=== PATIENT | male | born 1975 | race Two or more races ===

== ENCOUNTER 2024-08-12 14:13 | Outpatient (AMB) | payer MEDICAID, SELFPAY ==
[2024-08-12 14:26] VITALS: BP 139/91; PULSE 83; RESP 19; TEMP 36.8; O2SAT 95; BMI 34.2
--- NOTE | 2024-08-12 14:26 | ORTHONT_ITS ---
Vital signs 08/12/24 14:26 Height 1.68 m Height Method Stated Weight 96.218 kg Weight Measurement Method Standing Scale BMI 34.2 BP 139/91 H Blood Pressure Source Automatic Cuff Blood Pressure Location Right Upper Arm Position Sitting Respiration 19 Pulse 83 Pulse Source Monitor Temp 98.2 F Temp Source Temporal Artery Scan Pulse Oximetry (%) 95 Oxygen Delivery Method Room Air Med/Allergies Allergies & Medications Allergies NKA* Allergy (Uncoded 08/12/24 14:26) Medication Reconciliation tamsulosin 0.4 mg capsule (Flomax) 0.4 mg PO QDAY #7 caps 09/03/23 [Rx Confirmed 08/12/24] hydrocortisone 1 % topical cream (Anti-Itch (hydrocortisone)) 1 applic topical QDAY PRN itching #28.35 grams 12/10/23 [Rx Confirmed 08/12/24] hydrocortisone-pramoxine 1 %-1 % rectal cream 1 applic [place] TID-QID PRN itching #30 grams 12/14/23 [Rx Confirmed 08/12/24] celecoxib 200 mg capsule 200 mg PO QDAY 08/12/24 [History Confirmed 08/12/24] diclofenac sodium 1 % topical gel 2 g topical QID 08/12/24 [History Confirmed 08/12/24] Subjective Visit Visit for: new patient and knee (LEFT) Immunization / Flu Flu Vaccine in the Last 12 Months: No Flu Vaccine Exclusion Criteria: Refused by Patient History of Present Illness Chief complaint: LEFT KNEE PAIN Date of injury / onset of symptoms: 3 MONTHS Joe is a pleasant 49-year-old male with left knee pain and left knee arthritis. The pains on the medial aspect of his knee. He has had Toradol injections but nothing in his knee. He is also tried Celebrex. The pain is affecting his quality life. 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 Exam Exam Patient is in no acute distress and is cooperative with the examination today. Breathing is nonlabored. Patient has a normal mood and affect. Bilateral extremities were evaluated and demonstrates sensation intact to light touch. Palpable pedal pulses are present. No significant edema is present. Bilateral hips were examined. The patient has no pain with log roll of the hips. Internal rotation to 30 degrees and external rotation to 30 degrees is painless. Negative FADIR. Right knee was examined today. The right knee is in reasonable alignment. Range of motion from 0-120 degrees. Knee is stable to varus and valgus as well as AP translation with <5mm. Patient has a negative McMurrays. There is no pain with patellofemoral compression and no crepitus noted. The knee is nontender to palpation. Left knee was examined today. The left knee is in [varus] alignment. Range of motion from [0-115] degrees. Knee is stable to varus and valgus as well as AP translation with <5mm. Patient has a [negative] McMurrays. There is [no] pain with patellofemoral compression and [no] crepitus noted. The knee is [tender] to palpation [medially]. Assessment and Plan Problem List (1) Arthritis of left knee: Status: Acute Plan: Patient is a pleasant 49-year-old male with left knee pain and left knee arthritis. The pain is medially. We will get x-rays to see what it looks like. We will likely do an injection of cortisone at the next visit. Will need authorization and weightbearing x-rays. Office Procedures GNS Level of Care Nursing/Assessment Patient Status: Initial/New Patient Nursing Assessment/Reassesment: Medication Reconciliation, Update PMH in EMR and Vital Signs Coordination of Care: Complex Care and Chronic Disease 1-5, Education Complex Pt/Fam, Consent,records obtained, informed consent, 1 Ins Authorization, Lab and Imaging orders, Results/Orders obtained and Staff clarify orders Special Needs: Language special needs New Patient Charge New Patient Point Assignment: [id number] New Patient Point Charge: PHOTOGRAPHIC PROCESSOR Level 4 ([id number]) Past Medical History Past Medical History Have you ever been diagnosed with any of the following: Neurological Problems Seizures: No Cardiology Problems Congestive Heart Failure: No Respiratory Problems Chronic Obstructive Pulmonary Disease (COPD): No Asthma: No Smoking: No Smoking Exposure: No Stomache/Intestinal Problems Hepatitis: No Colitis: Yes Diverticulosis: Yes Hemorrhoids: Yes Obesity: Yes Genital/Urinary Problems Renal Disease: No Endocrine Problems Diabetes Mellitus Type 1: No Diabetes Mellitus Type 2: No Blood Problems Sickle Cell Disease: No Psychologic Problems 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
== END 2024-08-12 14:39 | disposition home or self-care (01) ==
LOC: HODSRG 14:13
PROVIDERS: PCP Registered Nurse Community Health; Referring Provider Registered Nurse Community Health; Supervising Provider Orthopaedic Surgery Adult Reconstructive Orthopaedic Surgery; Visit Provider Orthopaedic Surgery Adult Reconstructive Orthopaedic Surgery
DX: M17.12 Unilateral primary osteoarthritis, left knee (principal); M25.562 Pain in left knee
CPT/HCPCS: 99204; G0463

== ENCOUNTER 2024-08-29 15:02 | Outpatient (AMB) | payer MEDICAID, SELFPAY ==
--- NOTE | 2024-08-29 14:58 | ORTHONT_ITS ---
Med/Allergies Allergies & Medications Allergies NKA* Allergy (Uncoded 08/29/24 14:59) Medication Reconciliation tamsulosin 0.4 mg capsule (Flomax) 0.4 mg PO QDAY #7 caps 09/03/23 [Rx Confirmed 08/29/24] hydrocortisone 1 % topical cream (Anti-Itch (hydrocortisone)) 1 applic topical QDAY PRN itching #28.35 grams 12/10/23 [Rx Confirmed 08/29/24] hydrocortisone-pramoxine 1 %-1 % rectal cream 1 applic [place] TID-QID PRN itching #30 grams 12/14/23 [Rx Confirmed 08/29/24] celecoxib 200 mg capsule 200 mg PO QDAY 08/12/24 [History Confirmed 08/29/24] diclofenac sodium 1 % topical gel 2 g topical QID 08/12/24 [History Confirmed 08/29/24] Subjective Visit Visit for: follow up visit Immunization / Flu Flu Vaccine in the Last 12 Months: No Flu Vaccine Exclusion Criteria: No Exclusion Criteria History of Present Illness Chief complaint: 2 WEEK UP XRAY RESULTS/INJECTION PHONE Date of injury / onset of symptoms: 3 MONTHS Joe is a pleasant 49-year-old male with left knee pain and left knee arthritis. The pains on the medial aspect of his knee. He has had Toradol injections but nothing in his knee. He is also tried Celebrex. The pain is affecting his quality life. 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 Assessment and Plan Problem List (1) Arthritis of left knee: Status: Acute Plan: Patient is a pleasant 49-year-old male with left knee pain and left knee arthritis. The pain is medially. He has moderate arthritis in the medial compartment. We discussed nonoperative operative management. We will do a co rtisone injection at the next visit. We will get this set up for him. Office Procedures GNS Level of Care Nursing/Assessment Patient Status: Established Patient Nursing Assessment/Reassesment: Medication Reconciliation, Update PMH in EMR and Vital Signs Coordination of Care: Complex Care and Chronic Disease 1-5, Education Complex Pt/Fam, Consent,records obtained, informed consent, Results/Orders obtained and Staff clarify orders Special Needs: Language special needs Established Patient Charge Established Patient Point Assignment: 95 Telehealth Telemed Phone/Video with patient at home & Dr,PA,SENIOR NETWORK ENGINEER: Yes
== END 2024-08-29 15:19 | disposition home or self-care (01) ==
LOC: HODSRG 15:02
PROVIDERS: PCP Registered Nurse Community Health; Referring Provider Registered Nurse Community Health; Supervising Provider Orthopaedic Surgery Adult Reconstructive Orthopaedic Surgery; Visit Provider Orthopaedic Surgery Adult Reconstructive Orthopaedic Surgery
DX: M17.12 Unilateral primary osteoarthritis, left knee (principal); M25.562 Pain in left knee
CPT/HCPCS: 99212; G0463

== ENCOUNTER 2024-09-09 08:25 | Outpatient (AMB) | payer MEDICAID, SELFPAY ==
--- NOTE | 2024-09-09 08:35 | PD.ORTHCLVIS ---
Vital signs 09/09/24 08:36 Height 1.68 m Height Method Stated Weight 94.886 kg Weight Measurement Method Standing Scale BMI 33.6 BP 137/85 H Blood Pressure Source Automatic Cuff Blood Pressure Location Right Upper Arm Position Sitting Respiration 19 Pulse 78 Pulse Source Monitor Temp 97.8 F Temp Source Temporal Artery Scan Pulse Oximetry (%) 96 Oxygen Delivery Method Room Air Med/Allergies Allergies & Medications Allergies NKA* Allergy (Uncoded 09/09/24 08:37) Medication Reconciliation tamsulosin 0.4 mg capsule (Flomax) 0.4 mg PO QDAY #7 caps 09/03/23 [Rx Confirmed 09/09/24] hydrocortisone 1 % topical cream (Anti-Itch (hydrocortisone)) 1 applic topical QDAY PRN itching #28.35 grams 12/10/23 [Rx Confirmed 09/09/24] hydrocortisone-pramoxine 1 %-1 % rectal cream 1 applic [place] TID-QID PRN itching #30 grams 12/14/23 [Rx Confirmed 09/09/24] celecoxib 200 mg capsule 200 mg PO QDAY 08/12/24 [History Confirmed 09/09/24] diclofenac sodium 1 % topical gel 2 g topical QID 08/12/24 [History Confirmed 09/09/24] Subjective Visit Visit for: follow up visit, knee and injections Immunization / Flu Flu Vaccine in the Last 12 Months: No Flu Vaccine Exclusion Criteria: Refused by Patient History of Present Illness Chief complaint: LEFT KNEE INJECTION REQ Date of injury / onset of symptoms: 3 MONTHS Joe is a pleasant 49-year-old male with left knee pain and left knee arthritis. The pains on the medial aspect of his knee. He has had Toradol injections but nothing in his knee. He is also tried Celebrex. The pain is affecting his quality life. 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 Exam Exam Patient is in no acute distress and is cooperative with the examination today. Breathing is nonlabored. Patient has a normal mood and affect. Bilateral extremities were evaluated and demonstrates sensation intact to light touch. Palpable pedal pulses are present. No significant edema is present. Bilateral hips were examined. The patient has no pain with log roll of the hips. Internal rotation to 30 degrees and external rotation to 30 degrees is painless. Negative FADIR. Right knee was examined today. The right knee is in reasonable alignment. Range of motion from 0-120 degrees. Knee is stable to varus and valgus as well as AP translation with <5mm. Patient has a negative McMurrays. There is no pain with patellofemoral compression and no crepitus noted. The knee is nontender to palpation. Left knee was examined today. The left knee is in [varus] alignment. Range of motion from [0-115] degrees. Knee is stable to varus and valgus as well as AP translation with <5mm. Patient has a [negative] McMurrays. There is [no] pain with patellofemoral compression and [no] crepitus noted. The knee is [tender] to palpation [medially]. Assessment and Plan Problem List (1) Arthritis of left knee: Status: Acute Plan: Patient is a pleasant 49-year-old male with left knee pain and left knee arthritis. The pain is medially. He has moderate arthritis in the medial compartment. We will start with a cortisone injection Recommend knee cortisone injection as patient would like to proceed with conservative treatment at this time. The risks and benefits of the procedure were reviewed with the patient and patient gave verbal consent to continue with the procedure. Procedure: performed by Dr. Wilson Using sterile technique the left knee was thoroughly prepped with alcohol, and approximately 1 cc of Kenalog 40 mg/mL and 4 cc of 1% lidocaine was injected without resistance into the medial tibial femoral joint space. The patient tolerated the procedure. Office Procedures GNS Level of Care Nursing/Assessment Patient Status: Established Patient Nursing Assessment/Reassesment: Medication Reconciliation, Update PMH in EMR and Vital Signs Coordination of Care: Complex Care and Chronic Disease 1-5, Education Complex Pt/Fam, Consent,records obtained, informed consent, 1 Ins Authorization, Results/Orders obtained and Staff clarify orders Special Needs: Language special needs Established Patient Charge Established Patient Point Assignment: 110 Established Patient Point Charge: EP Level 3 (80-115) Surgical Proc/IM SQ injection Major Surgical Procedure: Yes (KNEE INJECTION) Medication Given Medication Given Medication Given: Yes Documented Dose Given: 4 Route: Infiitration Medication Given Medication Given Medication Given: Yes Documented Dose Given: 1 Route: Infiitration Office Meds Xylocaine 10 mg/mL (1 %) injection solution Performing Provider: Miguel Wilson MD Performing Location: [facility] Administered by: Miguel Wilson MD on 09/09/24 09:04 Dose Route Admin Location Dispensed Lot Number Expiration Date [facility] Esl Instructional Assistant 20 mL Infiltration 20 mL [id number] 06/06/27 54683-177-37 [facility] triamcinolone acetonide 40 mg/mL suspension for injection Performing Provider: Miguel Wilson MD Performing Location: [facility] Administered by: Miguel Wilson MD on 09/09/24 09:04 Dose Route Admin Location Dispensed Lot Number Expiration Date [place] Esl Instructional Assistant 40 mg Infiltration 1 mL [id number] 03/06/26 0095-2097-60 [employer] Past Medical History Past Medical History Have you ever been diagnosed with any of the following: Neurological Problems Seizures: No Cardiology Problems Congestive Heart Failure: No Respiratory Problems Chronic Obstructive Pulmonary Disease (COPD): No Asthma: No Smoking: No Smoking Exposure: No Stomache/Intestinal Problems Hepatitis: No Colitis: Yes Diverticulosis: Yes Hemorrhoids: Yes Obesity: Yes Genital/Urinary Problems Renal Disease: No Endocrine Problems Diabetes Mellitus Type 1: No Diabetes Mellitus Type 2: No Blood Problems Sickle Cell Disease: No Psychologic Problems 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
[2024-09-09 08:36] VITALS: BP 137/85; PULSE 78; RESP 19; TEMP 36.6; O2SAT 96; BMI 33.6
== END 2024-09-09 09:24 | disposition home or self-care (01) ==
LOC: HODSRG 08:25
PROVIDERS: Supervising Provider Orthopaedic Surgery Adult Reconstructive Orthopaedic Surgery; Visit Provider Orthopaedic Surgery Adult Reconstructive Orthopaedic Surgery
DX: M17.12 Unilateral primary osteoarthritis, left knee (principal); M25.562 Pain in left knee
CPT/HCPCS: 20610; 99213; J3301; J3490; G0463

== ENCOUNTER 2024-12-09 08:02 | Outpatient (AMB) | payer MEDICAID, SELFPAY ==
[2024-12-09 08:14] VITALS: BP 120/84; PULSE 72; RESP 18; TEMP 36.5; O2SAT 94; BMI 33.7
--- NOTE | 2024-12-09 08:14 | PD.ORTHCLVIS ---
Vital signs 12/09/24 08:14 Height 1.68 m Height Method Stated Weight 95.283 kg Weight Measurement Method Standing Scale BMI 33.7 BP 120/84 Blood Pressure Source Automatic Cuff Blood Pressure Location Left Upper Arm Position Sitting Respiration 18 Pulse 72 Pulse Source Monitor Temp 97.7 F Temp Source Temporal Artery Scan Pulse Oximetry (%) 94 L Oxygen Delivery Method Room Air Med/Allergies Allergies & Medications Allergies NKA* Allergy (Uncoded 12/09/24 08:14) Medication Reconciliation tamsulosin 0.4 mg capsule (Flomax) 0.4 mg PO QDAY #7 caps 09/03/23 [Rx Confirmed 12/09/24] hydrocortisone 1 % topical cream (Anti-Itch (hydrocortisone)) 1 applic topical QDAY PRN itching #28.35 grams 12/10/23 [Rx Confirmed 12/09/24] hydrocortisone-pramoxine 1 %-1 % rectal cream 1 applic [place] TID-QID PRN itching #30 grams 12/14/23 [Rx Confirmed 12/09/24] celecoxib 200 mg capsule 200 mg PO QDAY 08/12/24 [History Confirmed 12/09/24] diclofenac sodium 1 % topical gel 2 g topical QID 08/12/24 [History Confirmed 12/09/24] Exam Exam Patient is in no acute distress and is cooperative with the examination today. Breathing is nonlabored. Patient has a normal mood and affect. Bilateral extremities were evaluated and demonstrates sensation intact to light touch. Palpable pedal pulses are present. No significant edema is present. Bilateral hips were examined. The patient has no pain with log roll of the hips. Internal rotation to 30 degrees and external rotation to 30 degrees is painless. Negative FADIR. Right knee was examined today. The right knee is in reasonable alignment. Range of motion from 0-120 degrees. Knee is stable to varus and valgus as well as AP translation with <5mm. Patient has a negative McMurrays. There is no pain with patellofemoral compression and no crepitus noted. The knee is nontender to palpation. Left knee was examined today. The left knee is in [varus] alignment. Range of motion from [0-115] degrees. Knee is stable to varus and valgus as well as AP translation with <5mm. Patient has a [negative] McMurrays. There is [no] pain with patellofemoral compression and [no] crepitus noted. The knee is [tender] to palpation [medially]. X-rays of the left knee are weightbearing. This demonstrates moderate joint space narrowing medially Assessment and Plan Problem List (1) Arthritis of left knee: Status: Acute Plan: Patient is a pleasant 49-year-old male with left knee pain and left knee arthritis. The pain is medially. He has moderate arthritis in the medial compartment. He would like a repeat cortisone injection today Recommend knee cortisone injection as patient would like to proceed with conservative treatment at this time. The risks and benefits of the procedure were reviewed with the patient and patient gave verbal consent to continue with the procedure. Procedure: performed by Dr. Wilson Using sterile technique the left knee was thoroughly prepped with alcohol, and approximately 1 cc of Kenalog 40 mg/mL and 4 cc of 1% lidocaine was injected without resistance into the medial tibial femoral joint space. The patient tolerated the procedure. Office Procedures GNS Level of Care Nursing/Assessment Patient Status: Established Patient Nursing Assessment/Reassesment: Medication Reconciliation, Update PMH in EMR and Vital Signs Coordination of Care: Complex Care and Chronic Disease 1-5, Education Complex Pt/Fam, Consent,records obtained, informed consent, Results/Orders obtained and Staff clarify orders Special Needs: Language special needs Established Patient Charge Established Patient Point Assignment: 95 Established Patient Point Charge: EP Level 3 (80-115) Surgical Proc/IM SQ injection Major Surgical Procedure: Yes (KNEE INJECTION ) Medication Given Medication Given Medication Given: Yes Documented Dose Given: 4 Route: Infiitration Medication Given Medication Given Medication Given: Yes Documented Dose Given: 1 Route: Infiitration Office Meds Xylocaine 10 mg/mL (1 %) injection solution Performing Provider: Miguel Wilson MD Performing Location: [facility] Administered by: Miguel Wilson MD on 12/09/24 08:36 Dose Route Admin Location Dispensed Lot Number Expiration Date [facility] Photographic Double 20 mL Infiltration 20 mL [id number] [facility] triamcinolone acetonide 40 mg/mL suspension for injection Performing Provider: Miguel Wilson MD Performing Location: [facility] Administered by: Miguel Wilson MD on 12/09/24 08:36 Dose Route Admin Location Dispensed Lot Number Expiration Date [facility] Photographic Double 40 mg intra-articular LEFT KNEE 1 mL [id number] 02/05/26 4272-0649-84 TEVA PARENTERAL MA Intake Visit Data Collection New Patient or Established: Established Patient (seen at [facility] within 3 years) Reason for Visit:: FOLLOW UP KNEE INJECTION Seen by Clinical Staff ONLY (RN/MA): No Verbal consent obtained for Telemed visit?: No Oil Painter Required: Yes PCP or OBGYN visit in last 3 months: Yes Hx Now: No Do You Feel Safe at Home: Yes Authorities Contacted: N/A Questionairres Past Medical History Past Medical History Have you ever been diagnosed with any of the following: Neurological Problems Seizures: No Cardiology Problems Congestive Heart Failure: No Respiratory Problems Chronic Obstructive Pulmonary Disease (COPD): No Asthma: No Smoking: No Smoking Cessation Counseling: No Smoking Exposure: No Stomache/Intestinal Problems Hepatitis: No Colitis: Yes Diverticulosis: Yes Hemorrhoids: Yes Obesity: Yes Genital/Urinary Problems Renal Disease: No Endocrine Problems Diabetes Mellitus Type 1: No Diabetes Mellitus Type 2: No Blood Problems Sickle Cell Disease: No Psychologic Problems 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 He did well with the last cortisone injection and he reports that it only started to wear off recently. He would like another injection Personal History Occupation: [employer] Red flag PMH: BMI and none BMI Counceling provided: Yes Pain Pain level (0-10): 6 Pain duration: COMES AND GOES Pain location: inside (medial) and outside (lateral) Pain quality: aching Pain timing: increases with activity Associated signs & symptoms: none Ambulatory data Ambulatory device: none Treatments Number of previous injections: 1 Improvement with previous injections: Yes Improvement with PT: No Improvement with NSAIDS: no Review of Systems Review of Systems: All systems negative unless otherwise noted in HPI.
== END 2024-12-09 08:31 | disposition home or self-care (01) ==
PROVIDERS: Supervising Provider Orthopaedic Surgery Adult Reconstructive Orthopaedic Surgery; Visit Provider Orthopaedic Surgery Adult Reconstructive Orthopaedic Surgery
DX: M17.12 Unilateral primary osteoarthritis, left knee (principal)
CPT/HCPCS: 20610; 99213; J3301; J3490; G0463

== ENCOUNTER 2025-03-10 14:46 | Outpatient (AMB) | payer MEDICAID, SELFPAY ==
[2025-03-10 15:00] VITALS: BP 126/86; PULSE 78; RESP 18; TEMP 36.2; O2SAT 95; BMI 33.1
--- NOTE | 2025-03-10 15:00 | ORTHONT_ITS ---
Vital signs 03/10/25 15:00 Height 1.68 m Height Method Stated Weight 93.582 kg Weight Measurement Method Standing Scale BMI 33.1 BP 126/86 H Blood Pressure Source Automatic Cuff Blood Pressure Location Right Upper Arm Position Sitting Respiration 18 Pulse 78 Pulse Source Monitor Temp 97.2 F Temp Source Temporal Artery Scan Pulse Oximetry (%) 95 Oxygen Delivery Method Room Air Med/Allergies Allergies & Medications Allergies NKA* Allergy (Uncoded 03/10/25 15:01) Medication Reconciliation tamsulosin 0.4 mg capsule (Flomax) 0.4 mg PO QDAY #7 caps 09/03/23 [Rx Confirmed 03/10/25] hydrocortisone 1 % topical cream (Anti-Itch (hydrocortisone)) 1 applic topical QDAY PRN itching #28.35 grams 12/10/23 [Rx Confirmed 03/10/25] hydrocortisone-pramoxine 1 %-1 % rectal cream 1 applic ME TID-QID PRN itching #30 grams 12/14/23 [Rx Confirmed 03/10/25] celecoxib 200 mg capsule 200 mg PO QDAY 08/12/24 [History Confirmed 03/10/25] diclofenac sodium 1 % topical gel 2 g topical QID 08/12/24 [History Confirmed 03/10/25] lidocaine 5 % topical cream 1 applic topical BID PRN pain #15 grams 03/10/25 [Rx] Exam Exam Patient is in no acute distress and is cooperative with the examination today. Breathing is nonlabored. Patient has a normal mood and affect. Bilateral extremities were evaluated and demonstrates sensation intact to light touch. Palpable pedal pulses are present. No significant edema is present. Bilateral hips were examined. The patient has no pain with log roll of the hips. Internal rotation to 30 degrees and external rotation to 30 degrees is painless. Negative FADIR. Right knee was examined today. The right knee is in reasonable alignment. Range of motion from 0-120 degrees. Knee is stable to varus and valgus as well as AP translation with <5mm. Patient has a negative McMurrays. There is no pain with patellofemoral compression and no crepitus noted. The knee is nontender to palpation. Left knee was examined today. The left knee is in [varus] alignment. Range of motion from [0-115] degrees. Knee is stable to varus and valgus as well as AP translation with <5mm. Patient has a [negative] McMurrays. There is [no] pain with patellofemoral compression and [no] crepitus noted. The knee is [tender] to palpation [medially]. X-rays of the left knee are weightbearing. This demonstrates moderate joint space narrowing medially Assessment and Plan Problem List (1) Arthritis of left knee: Status: Acute Plan: Patient is a pleasant 49-year-old male with left knee pain and left knee arthritis. The pain is medially. He has moderate arthritis in the medial compartment. He would like a repeat cortisone injection today Recommend knee cortisone injection as patient would like to proceed with conservative treatment at this time. The risks and benefits of the procedure were reviewed with the patient and patient gave verbal consent to continue with the procedure. Procedure: performed by Dr. Wilson Using sterile technique the left knee was thoroughly prepped with alcohol, and approximately 1 cc of Kenalog 40 mg/mL and 4 cc of 1% lidocaine was injected without resistance into the medial tibial femoral joint space. The patient tolerated the procedure. Office Procedures GNS Level of Care Nursing/Assessment Patient Status: Established Patient Nursing Assessment/Reassesment: Medication Reconciliation, Update PMH in EMR and Vital Signs Coordination of Care: Complex Care and Chronic Disease 1-5, Education Complex Pt/Fam, Consent,records obtained, informed consent, 1 Ins Authorization, Results/Orders obtained and Staff clarify orders Special Needs: Language special needs Established Patient Charge Established Patient Point Assignment: 110 Established Patient Point Charge: EP Level 3 (80-115) Surgical Proc/IM SQ injection Major Surgical Procedure: Yes (KNEE INJECTION ) Medication Given Medication Given Medication Given: Yes Documented Dose Given: 4 Route: Infiitration Medication Given Medication Given Medication Given: Yes Documented Dose Given: 1 Route: Infiitration Office Meds Xylocaine 10 mg/mL (1 %) injection solution Performing Provider: Miguel Wilson MD Performing Location: [facility] Administered by: Miguel Wilson MD on 03/10/25 15:20 Dose Route Admin Location Dispensed Lot Number Expiration Date [facility] Drying Equipment Operator 20 mL Infiltration 20 mL [id number] [facility] triamcinolone acetonide 40 mg/mL suspension for injection Performing Provider: Miguel Wilson MD Performing Location: [facility] Administered by: Miguel Wilson MD on 03/10/25 15:20 Dose Route Admin Location Dispensed Lot Number Expiration Date [facility] Drying Equipment Operator 40 mg intra-articular LEFT KNEE 1 mL [id number] 09/07/26 9219-9288-43 [facility] [place] Intake Visit Data Collection New Patient or Established: Established Patient (seen at [facility] within 3 years) Reason for Visit:: 3 MONTH KNEE INJECTION F/U Seen by Clinical Staff ONLY (RN/MA): No Verbal consent obtained for Telemed visit?: No Heading And Priming Operator Required: No PCP or OBGYN visit in last 3 months: Yes Hx Now: No Do You Feel Safe at Home: Yes Authorities Contacted: N/A Questionairres Past Medical History Past Medical History Have you ever been diagnosed with any of the following: Neurological Problems Seizures: No Cardiology Problems Congestive Heart Failure: No Respiratory Problems Chronic Obstructive Pulmonary Disease (COPD): No Asthma: No Smoking: No Smoking Cessation Counseling: No Smoking Exposure: No Stomache/Intestinal Problems Hepatitis: No Colitis: Yes Diverticulosis: Yes Hemorrhoids: Yes Obesity: Yes Genital/Urinary Problems Renal Disease: No Endocrine Problems Diabetes Mellitus Type 1: No Diabetes Mellitus Type 2: No Blood Problems Sickle Cell Disease: No Psychologic Problems 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 He did well with the last cortisone injection and he reports that it only started to wear off recently. He would like another injection Personal History Occupation: [employer] PMH: BMI BMI Counceling provided: Yes Pain Pain level (0-10): 8 Pain duration: ALL DAY Pain location: anterior and posterior Pain quality: sharp, dull and aching Pain timing: increases with activity Associated signs & symptoms: stiffness Ambulatory data Ambulatory device: none Treatments Number of previous injections: 1 Improvement with previous injections: No Improvement with PT: No Improvement with NSAIDS: no Review of Systems Review of Systems: All systems negative unless otherwise noted in HPI.
== END 2025-03-10 15:25 | disposition home or self-care (01) ==
LOC: HODSRG 14:46
PROVIDERS: Supervising Provider Orthopaedic Surgery Adult Reconstructive Orthopaedic Surgery; Visit Provider Orthopaedic Surgery Adult Reconstructive Orthopaedic Surgery
DX: M17.12 Unilateral primary osteoarthritis, left knee (principal); M25.562 Pain in left knee
CPT/HCPCS: 20610; 99213; J3301; J3490; G0463

== ENCOUNTER 2025-06-09 14:55 | Outpatient (AMB) | payer MEDICAID, SELFPAY ==
[2025-06-09 15:17] VITALS: BP 129/87; PULSE 77; RESP 18; TEMP 36.5; O2SAT 97; BMI 33.3
--- NOTE | 2025-06-09 15:17 | PD.ORTHCLVIS ---
Vital signs 06/09/25 15:17 Height 1.68 m Height Method Stated Weight 94.064 kg Weight Measurement Method Standing Scale BMI 33.3 BP 129/87 H Blood Pressure Source Automatic Cuff Blood Pressure Location Left Upper Arm Position Sitting Respiration 18 Pulse 77 Pulse Source Monitor Temp 97.7 F Temp Source Temporal Artery Scan Pulse Oximetry (%) 97 Oxygen Delivery Method Room Air Med/Allergies Allergies & Medications Allergies NKA* Allergy (Uncoded 06/09/25 15:18) Medication Reconciliation tamsulosin 0.4 mg capsule (Flomax) 0.4 mg PO QDAY #7 caps 09/03/23 [Rx Confirmed 06/09/25] hydrocortisone 1 % topical cream (Anti-Itch (hydrocortisone)) 1 applic topical QDAY PRN itching #28.35 grams 12/10/23 [Rx Confirmed 06/09/25] hydrocortisone-pramoxine 1 %-1 % rectal cream 1 applic MS TID-QID PRN itching #30 grams 12/14/23 [Rx Confirmed 06/09/25] celecoxib 200 mg capsule 200 mg PO QDAY 08/12/24 [History Confirmed 06/09/25] diclofenac sodium 1 % topical gel 2 g topical QID 08/12/24 [History Confirmed 06/09/25] lidocaine 5 % topical cream 1 applic topical BID PRN pain #15 grams 03/10/25 [Rx Confirmed 06/09/25] Exam Exam Patient is in no acute distress and is cooperative with the examination today. Breathing is nonlabored. Patient has a normal mood and affect. Bilateral extremities were evaluated and demonstrates sensation intact to light touch. Palpable pedal pulses are present. No significant edema is present. Bilateral hips were examined. The patient has no pain with log roll of the hips. Internal rotation to 30 degrees and external rotation to 30 degrees is painless. Negative FADIR. Right knee was examined today. The right knee is in reasonable alignment. Range of motion from 0-120 degrees. Knee is stable to varus and valgus as well as AP translation with <5mm. Patient has a negative McMurrays. There is no pain with patellofemoral compression and no crepitus noted. The knee is nontender to palpation. Left knee was examined today. The left knee is in [varus] alignment. Range of motion from [0-115] degrees. Knee is stable to varus and valgus as well as AP translation with <5mm. Patient has a [negative] McMurrays. There is [no] pain with patellofemoral compression and [no] crepitus noted. The knee is [tender] to palpation [medially]. X-rays of the left knee are weightbearing. This demonstrates moderate joint space narrowing medially Assessment and Plan Problem List (1) Arthritis of left knee: Status: Acute Plan: Patient is a pleasant 49-year-old male with left knee pain and left knee arthritis. The pain is medially. He has moderate arthritis in the medial compartment. He would like a repeat cortisone injection today Recommend knee cortisone injection as patient would like to proceed with conservative treatment at this time. The risks and benefits of the procedure were reviewed with the patient and patient gave verbal consent to continue with the procedure. Procedure: performed by Dr. Wilson Using sterile technique the left knee was thoroughly prepped with alcohol, and approximately 1 cc of Depo-Medrol 80mg/mL and 4 cc of 0.2% ropivacaine was injected without resistance into the medial tibial femoral joint space. The patient tolerated the procedure. Office Procedures GNS Level of Care Nursing/Assessment Patient Status: Established Patient Nursing Assessment/Reassesment: Medication Reconciliation, Update PMH in EMR and Vital Signs Coordination of Care: Complex Care and Chronic Disease 1-5, Education Complex Pt/Fam, Consent,records obtained, informed consent, Results/Orders obtained and Staff clarify orders Special Needs: Language special needs Established Patient Charge Established Patient Point Assignment: 95 Established Patient Point Charge: EP Level 3 (80-115) Surgical Proc/IM SQ injection Major Surgical Procedure: Yes (LEFT KNEE INJECTION) Medication Given Medication Given Medication Given: Yes Documented Dose Given: 1 Route: Infiitration Medication Given Medication Given Medication Given: Yes Documented Dose Given: 4 Route: Infiitration Office Meds methylprednisolone acetate 80 mg/mL suspension for injection Performing Provider: Miguel Wilson MD Performing Location: [facility] Administered by: Miguel Wilson MD on 06/09/25 15:28 Dose Route Admin Location Dispensed Lot Number Expiration Date [employer] Evaporator 80 mg intra-articular 1 mL [id number] 03/06/27 [address]-6 [employer] ropivacaine (PF) 2 mg/mL (0.2 %) injection solution Performing Provider: Miguel Wilson MD Performing Location: [facility] Administered by: Miguel Wilson MD on 06/09/25 15:28 Dose Route Admin Location Dispensed Lot Number Expiration Date [facility] Supervisor Evaporator 20 mL Infiltration 20 mL [id number] 11/06/27 89811-093-95 [facility] Intake Visit Data Collection New Patient or Established: Established Patient (seen at [facility] within 3 years) Reason for Visit:: 3 MONTH KNEE INJECTION F/U Seen by Clinical Staff ONLY (RN/MA): No Verbal consent obtained for Telemed visit?: No Stonecutter Hand Required: No PCP or OBGYN visit in last 3 months: Yes Hx Now: No Do You Feel Safe at Home: Yes Authorities Contacted: N/A Questionairres Past Medical History Past Medical History Have you ever been diagnosed with any of the following: Neurological Problems Seizures: No Cardiology Problems Myocardial Infarction: No Cardiac Arrhythmia: No Atrial Fibrillation: No Angina: No Heart Murmur: No Coronary Artery Disease: No Atherosclerotic Heart Disease: No Peripheral Vascular Disease: No Hypercholesterolemia: No Aneurysm: No Congestive Heart Failure: No Congenital Heart Disease: No Valvular Heart Disease: No Rheumatic Fever: No Cardiomyopathy: No Edema: No Pericarditis: No Cellulitis: No Deep Vein Thrombosis: No Hypertension: No Hypotension: No Varicose Veins: No Respiratory Problems Chronic Obstructive Pulmonary Disease (COPD): No Asthma: No Bronchitis: No Emphysema: No Pneumonia: No Pulmonary Fibrosis: No Tuberculosis: No Pulmonary Embolism: No Pulmonary Edema: No Sleep Apnea: No CPAP Dependent: No Respiratory Aspiration: No Dyspnea: No Orthopnea: No Hx Cough: No Cough: No Wheezing: No Chest Deformities: No Smoking: No Smoking Cessation Counseling: No Smoking Exposure: No Tobacco Use: No Clubbing: No Exposure to Respiratory Irritants: No Intubation: No Stomache/Intestinal Problems Hepatitis: No Colitis: Yes Diverticulosis: Yes Hemorrhoids: Yes Obesity: Yes Genital/Urinary Problems Renal Disease: No Endocrine Problems Diabetes Mellitus Type 1: No Diabetes Mellitus Type 2: No Blood Problems Sickle Cell Disease: No Psychologic Problems 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 He did well with the last cortisone injection and he reports that it only started to wear off recently. He would like another injection Personal History Occupation: [employer] PMH: BMI BMI Counceling provided: Yes Pain Pain level (0-10): 8 Pain duration: ALL DAY Pain location: anterior and posterior Pain quality: sharp, dull and aching Pain timing: increases with activity Associated signs & symptoms: stiffness Ambulatory data Ambulatory device: none Treatments Number of previous injections: 1 Improvement with previous injections: No Improvement with PT: No Improvement with NSAIDS: no Review of Systems Review of Systems: All systems negative unless otherwise noted in HPI.
== END 2025-06-09 15:46 | disposition home or self-care (01) ==
PROVIDERS: Supervising Provider Orthopaedic Surgery Adult Reconstructive Orthopaedic Surgery; Visit Provider Orthopaedic Surgery Adult Reconstructive Orthopaedic Surgery
DX: M17.12 Unilateral primary osteoarthritis, left knee (principal); M25.562 Pain in left knee; E66.9 Obesity, unspecified; Z71.3 Dietary counseling and surveillance; Z68.33 Body mass index [BMI] 33.0-33.9, adult
CPT/HCPCS: 20610; 99213; J1010; J2795; G0463

== ENCOUNTER 2025-08-23 14:12 | Emergency (ER) | payer MEDICAID, SELFPAY ==
[2025-08-23 15:16] VITALS: BP 135/93; PULSE 101; RESP 18; TEMP 37; O2SAT 97; BMI 34.1
--- NOTE | 2025-08-23 15:35 | XR_ITS ---
Examination: CT abdomen and pelvis without contrast. Coronal 3-D reconstructions. Sagittal 2-D reconstructions. Date and time of exam: August 23, 2025, 1558 hours, comparison April 05, 2023 INDICATIONS: Bilateral flank pain and onset rectal bleeding today CTDI: vol (mGy): 12.3 DLP: (mGycm): 723 Technique: Axial images of the abdomen have been obtained, 3 mm slice thickness Intravenous contrast material has not been administered. Low dose protocols were performed. One or more of the following dose reduction techniques were used; automated exposure control, adjustment of the mA and/or KV according to patient size, use of iterative reconstruction technique. Findings: No liver or splenic lesion Contracted gallbladder No pancreatic or adrenal mass. No renal or ureteral calculi, no hydronephrosis Aorta normal size Normal appendix No bowel obstruction Colonic diverticulosis, no definite diverticulitis Normal seminal vesicles No prostatomegaly No definite thickening of the rectal wall Fat-containing inguinal hernias, larger on the left side The Gene structures are intact IMPRESSION: No renal or ureteral calculi, no hydronephrosis Normal appendix Prominent sigmoid diverticulosis, no diverticulitis No definite thickening of the rectal wall If there is active rectal bleeding, consider nuclear medicine radioisotope bone scan follow-up
--- NOTE | 2025-08-23 15:56 | PD.EDRME ---
Rapid Medical Screening Exam RME Arrival date/time: 08/23/25 14:12 Chief Complaint: General Adult/Misc Complain Vital signs: Vital Signs Temperature 98.6 F 08/23/25 15:16 Pulse Rate 101 H 08/23/25 15:16 Respiratory Rate 18 08/23/25 15:16 Blood Pressure 135/93 H 08/23/25 15:16 Pulse Oximetry (%) 97 08/23/25 15:16 Oxygen Delivery Method Room Air 08/23/25 15:16 RME Narrative: 50-year-old male who is an occasional drinker with past medical history of hemorrhoids presents to the ER complaining of 4 episodes of bright red blood per rectum associated with diarrhea associate with abdominal pain x 1 day. I briefly performed a screening evaluation to initiate work-up and expedite care. Complete history, physical exam, and plan of care is deferred to the provider in the main ED. Exam: Head: Normocephalic, atraumatic. Respiratory: Normal effort. No respiratory distress or accessory muscle use. Neuro: Speech normal. Skin: Warm, dry, normal color. Psych: Pleasant. Normal affect. Cooperative. Clinical Impression: Hematochezia
[2025-08-23 15:57] LABS: Lactate (Lactic Acid) 1.7 mMol/L (0.4-2.0)
[2025-08-23 16:25] LABS: INR 1.0 (0.9-1.3); Prothrombin Time 10.8 Seconds (9.0-12.2)
[2025-08-23 16:27] LABS: Alanine Aminotransferase 24 U/L (10-49); Albumin, Serum 4.6 gm/dL (3.5-5.0); Albumin/Globulin Ratio 1.6 (1.2-2.2); Alkaline Phosphatase 113 U/L (46-116); Anion Gap 8 (7-16); Aspartate Amino Transferase 16 U/L (0-34); BUN/Creatinine Ratio 13 Ratio (12-20); Bilirubin,Total 0.2 mg/dL (0.3-1.2); Blood Urea Nitrogen 15 mg/dL (9-23); Calcium 9.0 mg/dL (8.3-10.6); Calcium (Corrected) 9.0 mg/dL (8.5-10.1); Carbon Dioxide 26.0 mMol/L (20.0-31.0); Chloride 106 mMol/L (98-107); Creatinine (Component) 1.2 mg/dL (0.6-1.3); Estimated Creatinine Clearance 78.9 mL/min (>60); Globulin 2.9 gm/dL (2.3-3.5); Glucose 113 mg/dL (74-106); Osmolality,Calculated 281 (275-295); Potassium 4.6 mMol/L (3.4-5.1); Sodium 140 mMol/L (136-145); Total Protein 7.5 gm/dL (5.7-8.2); eGFR > 60 See Note
[2025-08-23 16:47] VITALS: BP 119/85; PULSE 83; RESP 16; TEMP 37.3; O2SAT 96
[2025-08-23 16:54] LABS: Collection Type, Urine Voided; Squamous Epithelial Cell,Urine 0 /hpf (0-5)
[2025-08-23 17:47] LABS: Basophils # (Auto) 0.1 Thou/mm3 (0.0-0.2); Basophils % (Auto) 1 % (0-2.5); Eosinophils # (Auto) 0.4 Thou/mm3 (0.0-0.5); Eosinophils % (Auto) 3 % (0-10); Hematocrit 42.3 % (41.0-53.0); Hemoglobin 13.7 g/dL (13.5-16.0); Immature Granulocytes Auto 0.04 Thou/mm3 (0.00-0.00); Lymphocytes # (Auto) 2.5 Thou/mm3 (1.0-4.8); Lymphocytes % (Auto) 17 % (10-50); Mean Corpuscular HGB Conc 32.4 g/dl (31.0-37.0); Mean Corpuscular Hemoglobin 28.2 pg (25.0-35.0); Mean Corpuscular Volume 87 fL (80-100); Monocytes # (Auto) 1.1 Thou/mm3 (0.0-0.8); Monocytes % (Auto) 7 % (0-12); Neutrophils # (Auto) 10.6 Thou/mm3 (1.8-7.7); Neutrophils % (Auto) 72 % (37-80); Nucleated Red Blood Cell # 0.00 Thou/mm3 (0.00-0.00); Nucleated Red Blood Cell % 0 /100 WBC (0); Platelet Count 480 Thou/mm3 (140-440); RDW Standard Deviation 41.7 fL (35.1-43.9); Red Blood Count 4.85 Miln/mm3 (4.50-5.90); White Blood Count 14.8 Thou/mm3 (3.8-10.6)
[2025-08-23 17:54] LABS: Bilirubin,Urine Negative (Negative); Blood,Urine 1+ (Negative); Clarity,Urine Clear (Clear/Hazy); Color,Urine Lt-Yellow (Lt Yel-Yel); Glucose, Urine Negative (Negative); Ketones,Urine Negative (Negative); Leukocyte Esterase,Urine Negative (Negative); Nitrite,Urine Negative (Negative); PH,Urine 6.0 (5.0-7.0); Protein,Urine Negative (Neg - Trace); RBC,Urine 7 /hpf (0-3); Specific Gravity,Urine 1.024 (1.001-1.035); Urobilinogen,Urine Negative mg/dL (0.0-1.0); WBC,Urine < 1 /hpf (0-5)
--- NOTE | 2025-08-23 19:51 | EDNOTE_ITS ---
ED General RME/HPI General Chief complaint: General Adult/Misc Complain Stated complaint: BRIGHT RED BLOOD IN STOOL X1 HOUR HX HEMMORHOIDS Time Seen by Provider: 08/23/25 16:02 Arrival date/time: 08/23/25 14:12 CC: Painless rectal bleeding, dark burgundy blood without bowel movement HPI 4 episodes in the last 24 hours no prior history of similar events already has a GI follow-up in the beginning of September for hemorrhoids. Patient has been using hemorrhoid cream denies nausea vomiting admits that he eats very spicy food every morning when regular basis. Patient denies chest pain shortness of breath difficulty breathing nausea vomiting or diarrhea. RME / HPI RME / HPI narrative: 50-year-old male who is an occasional drinker with past medical history of hemorrhoids presents to the ER complaining of 4 episodes of bright red blood per rectum associated with diarrhea associate with abdominal pain x 1 day. I briefly performed a screening evaluation to initiate work-up and expedite care. Complete history, physical exam, and plan of care is deferred to the provider in the main ED. Exam: Head: Normocephalic, atraumatic. Respiratory: Normal effort. No respiratory distress or accessory muscle use. Neuro: Speech normal. Skin: Warm, dry, normal color. Psych: Pleasant. Normal affect. Cooperative. Impression: Hematochezia Related Data Home Medications ?Medication ?Instructions ?Recorded ?Confirmed celecoxib 200 mg capsule 200 mg PO QDAY 08/12/2412/02 diclofenac sodium 1 % topical gel 2 g topical QID 02/2806/09/25 Previous Rx's ?Medication ?Instructions ?Recorded tamsulosin 0.4 mg capsule (Flomax) 0.4 mg PO QDAY #7 c aps 09/03/23 hydrocortisone 1 % topical cream 1 applic topical QDAY PRN itching 12/10/23 (Anti-Itch (hydrocortisone)) #28.35 grams hydrocortisone-pramoxine 1 %-1 % 1 applic MN TID-QID P RN itching 12/14/23 rectal cream #30 grams lidocaine 5 % topical cream 1 applic topical BID PRN p ain #15 03/10/25 grams famotidine 20 mg tablet 20 mg PO QDAY #30 tabs 08/23 Allergies Allergy/AdvReac Type Severity Reaction Status Date / Time NKA* Allergy Uncoded 08/23/25 14:15 Review of Systems Review of Systems Narrative Review of Systems: GEN: No fever, no chills, no weight loss EYES: No discharge, no visual changes, no pain HEENT: No ear pain, no congestion, no sore throat PULM: No shortness of breath, no cough, no congestion CV: No chest pain, no dyspnea on exertion, no palpitations GI: No nausea, no vomiting, no diarrhea, no pain, no constipation, + rectal bleeding : No frequency, no urgency, no dysuria MUSC/SKEL: No joint pain, no back pain SKIN: No rash PSYCH: No hallucinations, no depression HEME/LYMPH: No easy bleeding or bruising tendencies NEURO: No weakness, no headache Past Medical History Past Medical History NEUROLOGIC: Negative Neurological Disorders or Seizures CARDIAC: Negative Cardiac Disorders, Myocardial Infarction, Cardiac Arrhythmia, Atrial Fibrillation, Angina, Heart Murmur, Coronary Artery Disease, Atherosclerotic Heart Disease, Peripheral Vascular Disease, Hypercholesterolemia, Aneurysm, Congestive Heart Failure, Congenital Heart Disease, Valvular Heart Disease, Rheumatic Fever, Cardiomyopathy, Edema, Pericarditis, Cellulitis, Deep Vein Thrombosis, Hypertension, Hypotension or Varicose Veins RESPIRATORY: Negative Chronic Obstructive Pulmonary Disease (COPD), Asthma, Bronchitis, Emphysema, Pneumonia, Pulmonary Fibrosis, Tuberculosis, Pulmonary Embolism, Pulmonary Edema, Sleep Apnea, CPAP Dependent, Respiratory Aspiration, Dyspnea, Orthopnea, Cough, Sputum Production, Wheezing, Chest Deformities, Smoking, Smoking Cessation Counseling, Smoking Exposure, Tobacco Use, Clubbing, Exposure to Respiratory Irritants or Intubation GASTROINTESTINAL: Positive Gastrointestinal Disorders, Colitis, Diverticulosis, Hemorrhoids and Obesity; Negative Hepatitis GENITOURINARY: Negative Genitourinary Disorders or Renal Disease MUSCULOSKELETAL: Positive Musculoskeletal Disorders ENDOCRINE: Negative Endocrine Disorders, Diabetes Mellitus Type 1 or Diabetes Mellitus Type 2 HEMATOLOGIC: Negative Blood Disorders or Sickle Cell Disease PSYCHO/SOCIAL: Positive Recreational Drug Use (Meth in the past younger) OTHER HISTORY: Positive Chicken Pox; Negative Hospitalization, Autoimmune Disease, Shingles, Blood Transfusions, Blood Transfusion Reaction, Anesthesia Reactions or Cancer Family History FAMILY HISTORY: Negative Family Neurologic Problems, Family Psychiatric Problems, Family Respiratory Disorders, Family Cardiac Disorders, Family Gastrointestinal Problems, Family Cancer, Family Surgery or Family Anesthesia Reaction Social History SMOKING STATUS: Never smoker SECOND HAND EXPOSURE: No SUBSTANCE USE: does not use ED Exam Narrative Physical exam: [General: Obese not in any acute distress Head normocephalic HEENT: Within acceptable limits Neck is supple nontender Chest equal chest rise nontender to palpation Respiratory: Clear to auscultation no wheezes crackles or rubs CV: Rate rhythm is regular no murmurs rubs or clicks Abdomen is distended secondary to body habitus soft nontender no masses positive bowel sounds all 4 quadrants GI: Rectum: Good tone no active bleeding, dried hemorrhoid no fissures. No active bleeding. Back: No CVA tenderness no spinous process tenderness from cervical spine thoracic and lumbar spine Skin: Intact no petechiae rash induration ulceration or crepitus Extremities: Moving all extremity against resistance cap refill less than 2 seconds neurosensory intact Neuro: Awake alert oriented x3 Glascow coma 15 no focal deficits] Course Course Course Narrative: Patient has no acute finding the laboratory results are wholly unremarkable other than the leukocytosis but there is no bandemia or major shift. At this time the patient will be advised to stop eating spicy food in the morning will start him on famotidine, and he is to follow-up with the GI doctor as stated in the beginning of September. Quality Measures none Orders Category Date Time Status NPO NOW Care 08/23/25 15:35 Active Diet NPO (NOW) Diet 08/23/25 15:[address] abdomen pelvis wo con Stat Exams 08/23/25 15:35 Completed Blood Culture (Lab) Stat Lab 08/23/25 15:53 Received CBC Stat Lab 08/23/25 15:37 Completed CMP [Comprehensive Metabolic Panel] Stat Lab 08/23/25 15:37 Completed INR [Prothrombin Time with INR] Stat Lab 08/23/25 15:37 Completed Lactic Acid [Lactate (Lactic Acid)] Stat Lab 08/23/25 15:37 Completed Urinalysis Stat Lab 08/23/25 16:47 Completed Vital Signs Vital signs: Vital Signs Temperature 98.6 F 08/23/25 15:16 Pulse Rate 101 H 08/23/25 15:16 Respiratory Rate 18 08/23/25 15:16 Blood Pressure 135/93 H 08/23/25 15:16 Pulse Oximetry (%) 97 08/23/25 15:16 Oxygen Delivery Method Room Air 08/23/25 15:16 Discharge Plan Plan Patient Disposition: HOME (Self Care) Prescriptions/Referrals Prescriptions/Med Rec: New famotidine 20 mg tablet 20 mg PO QDAY Qty: 30 0RF No Action hydrocortisone [Anti-Itch (HC)] 1 % cream 1 applic topical QDAY PRN (Reason: itching) Qty: 28.35 0RF Rx Instructions: Use for no more than 2 weeks celecoxib 200 mg capsule 200 mg PO QDAY diclofenac sodium 1 % gel 2 g topical QID Rx Instructions: apply to single elbow, wrist or hand; for hand includes palm/fingers/back of hand lidocaine 5 % cream 1 applic topical BID PRN (Reason: pain) Qty: 15 0RF tamsulosin [Flomax] 0.4 mg capsule 0.4 mg PO QDAY Qty: 7 0RF hydrocortisone-pramoxine 1-1 % cream 1 applic [place] TID-QID PRN (Reason: itching) Qty: 30 0RF Rx Instructions: Use for no more than 2 weeks Referrals: Tomasz Leong [Primary Care Provider] - In 1 week Carmelo Thornton MD [Physician, Gastroenterology] - In 1 week Problem List Clinical Impression: Rectal bleed Patient/Caregiver Discharge Instructions Other Activity Instructions:: Avoid all greasy spicy and fatty foods for the next 10 days, follow-up with your primary care doctor or GI doctor if there is a large amount of bright red bleeding and return immediately to the emergency room for reevaluation. Take the medication as prescribed. Education Materials: Understanding Rectal Bleeding Print Language: Kiswahili Stand Alone Forms: Suri Award Info., Patient Portal Info Letter, Work/School Release PA/COPY CENTER ASSOCIATE Supervising Physician PA/COPY CENTER ASSOCIATE Supervising Physician: Rick Bejarano ENP [facility] Clinical Information Provided by: patient Medical Records reviewed [facility] Meds/Rx considered, not ordered None Labs/Rad/Tests considered, not ordered None Chronic Illness/Social Conditions which may negatively complicate care or outcome(s)-explain: None or not applicable EKG EKG not done Labs Labs: interpreted by [place] Lab(s) Interpretation(s): CBC shows mild leukocytosis of 14.8 no anemia thrombocytopenia Coags within acceptable limits CMP shows no significant electrolyte imbalances other than a glucose of 113 lactic acid is unremarkable no transaminitis or T. bili elevation. Urine is unremarkable. Imaging Imaging interpretation: interpreted by [facility] Imaging Interpretation(s): No rectal wall thickening, significant diverticulosis without diverticulitis. No other acute finding. Medication Administration(s) none Diagnosis Differential Diagnosis ED Complaint MDM: Internal hemorrhoid hemorrhoid external hemorrhoid lower GI bleed
[2025-08-23 20:03] VITALS: RESP 16
== END 2025-08-23 20:04 | disposition home or self-care (01) ==
PROVIDERS: Physician Assistant; Emergency Provider Emergency Medicine; PCP Physician Assistant
DX: K92.1 Melena (principal)
CPT/HCPCS: 36415; 74176; 80053; 81001; 83605; 85025; 85610; 87040; 87086; 99283

== ENCOUNTER 2025-08-26 03:32 | Inpatient (IN) | payer MEDICAID, SELFPAY ==
[2025-08-26] VITALS (8 sets, daily range): BP systolic 105–132; BP diastolic 54–87; PULSE 19–123; RESP 16–30; TEMP 36.2–37; O2SAT 96–100; BMI 37.6
--- NOTE | 2025-08-26 04:00 | EKG_ITS ---
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
--- NOTE | 2025-08-26 04:18 | PD.EDRME ---
Rapid Medical Screening Exam RME Arrival date/time: 08/26/25 03:32 50M with history of hemorrhoids (including surgery) presents to ED with worsening black/red blood in stool/rectum. Patient was here several days ago for this. Patient thinks something exploded inside him. Chief Complaint: GI Bleed Time Seen by Provider: 08/26/25 04:23 Vital signs: Vital Signs Temperature 98.6 F 08/26/25 04:00 Pulse Rate 123 H 08/26/25 04:00 Respiratory Rate 22 H 08/26/25 04:00 Pulse Oximetry (%) 100 08/26/25 04:00 Oxygen Delivery Method Room Air 08/26/25 04:00 Exam: Pale. No focal ab tenderness. Clinical Impression: Hemorrhoids vs GIB vs cancer vs proctitis vs rectal bleed vs drug/alcohol use
--- NOTE | 2025-08-26 04:24 | PD.EDGIBLD ---
ED GI Bleed RME/HPI General Chief complaint: GI Bleed Stated complaint: RECTAL BLEEDING Time Seen by Provider: 08/26/25 04:23 Arrival date/time: 08/26/25 03:32 RME / HPI RME / HPI Narrative: 08/26/25 03:32 50M with history of hemorrhoids (including surgery) presents to ED with worsening black/red blood in stool/rectum. Patient was here several days ago for this. Patient thinks something exploded inside him. Dr. Echavarria?s Main ED Evaluation: 50yo male with a history of hemorrhoids presents to the ED for a chief complaint of rectal bleeding. Patient states he's been passing nonstop large blood clots in his stools since 1800 last night. Patient denies any abdominal pain, rectal pain, itching, or any other associated symptoms. He does have an appointment with GI on 09/09/25. NKA. Related Data Home Medications ?Medication ?Instructions ?Recorded ?Confirmed celecoxib 200 mg capsule 200 mg PO QDAY 08/12/24 06/09/25 diclofenac sodium 1 % topical gel 2 g topical QID 08/12/24 06/09/25 Previous Rx's ?Medication ?Instructions ?Recorded tamsulosin 0.4 mg capsule (Flomax) 0.4 mg PO QDAY #7 caps 09/03/23 hydrocortisone 1 % topical cream 1 applic topical QDAY PRN itching 12/10/23 (Anti-Itch (hydrocortisone)) #28.35 grams hydrocortisone-pramoxine 1 %-1 % 1 applic MO TID-QID PRN itching 12/14/23 rectal cream #30 grams lidocaine 5 % topical cream 1 applic topical BID PRN pain #15 03/10/25 grams famotidine 20 mg tablet 20 mg PO QDAY #30 tabs 08/23/25 Allergies Allergy/AdvReac Type Severity Reaction Status Date / Time No Known Allergies Allergy Verified 08/26/25 03:33 Review of Systems Review of Systems Systems Reviewed: All systems reviewed, normal except as documented Past Medical History Past Medical History NEUROLOGIC: Negative Neurological Disorders or Seizures CARDIAC: Negative Cardiac Disorders, Myocardial Infarction, Cardiac Arrhythmia, Atrial Fibrillation, Angina, Heart Murmur, Coronary Artery Disease, Atherosclerotic Heart Disease, Peripheral Vascular Disease, Hypercholesterolemia, Aneurysm, Congestive Heart Failure, Congenital Heart Disease, Valvular Heart Disease, Rheumatic Fever, Cardiomyopathy, Edema, Pericarditis, Cellulitis, Deep Vein Thrombosis, Hypertension, Hypotension or Varicose Veins RESPIRATORY: Negative Chronic Obstructive Pulmonary Disease (COPD), Asthma, Bronchitis, Emphysema, Pneumonia, Pulmonary Fibrosis, Tuberculosis, Pulmonary Embolism, Pulmonary Edema, Sleep Apnea, CPAP Dependent, Respiratory Aspiration, Dyspnea, Orthopnea, Cough, Sputum Production, Wheezing, Chest Deformities, Smoking, Smoking Cessation Counseling, Smoking Exposure, Tobacco Use, Clubbing, Exposure to Respiratory Irritants or Intubation GASTROINTESTINAL: Positive Gastrointestinal Disorders, Colitis, Diverticulosis, Hemorrhoids and Obesity; Negative Hepatitis GENITOURINARY: Negative Genitourinary Disorders or Renal Disease MUSCULOSKELETAL: Positive Musculoskeletal Disorders ENDOCRINE: Negative Endocrine Disorders, Diabetes Mellitus Type 1 or Diabetes Mellitus Type 2 HEMATOLOGIC: Negative Blood Disorders or Sickle Cell Disease PSYCHO/SOCIAL: Positive Recreational Drug Use (Meth in the past younger) OTHER HISTORY: Positive Chicken Pox; Negative Hospitalization, Autoimmune Disease, Shingles, Blood Transfusions, Blood Transfusion Reaction, Anesthesia Reactions or Cancer Family History FAMILY HISTORY: Negative Family Neurologic Problems, Family Psychiatric Problems, Family Respiratory Disorders, Family Cardiac Disorders, Family Gastrointestinal Problems, Family Cancer, Family Surgery or Family Anesthesia Reaction Social History SMOKING STATUS: Never smoker SECOND HAND EXPOSURE: No SUBSTANCE USE: does not use ED Exam Narrative Physical exam: Generally patient is alert and in no obvious distress, heart regular rate and rhythm, lungs clear to auscultation equal bilaterally, abdomen soft bowel sounds present also nontender, rectal exam showed no external hemorrhoids, no palpable internal hemorrhoids, maroon-colored blood on the fingertip and a mild amount. Guaiac positive. Course Quality Measures none Orders Category Date Time Status EKG (ED ONLY) *Do not use* NOW Care 08/26/25 04:01 Completed Occult Blood,Stool (Nursing) NOW Care 08/26/25 04:56 Active EKG (ED Only) Stat Exams 08/26/25 04:00 Draft CBC Stat Lab 08/26/25 04:47 Completed CMP [Comprehensive Metabolic Panel] Stat Lab 08/26/25 04:47 Received Vital Signs Vital signs: Vital Signs Temperature 98.6 F 08/26/25 04:00 Pulse Rate 123 H 08/26/25 04:00 Respiratory Rate 22 H 08/26/25 04:00 Pulse Oximetry (%) 100 08/26/25 04:00 Oxygen Delivery Method Room Air 08/26/25 04:00 GI Bleed [facility] Narrative [facility] Narrative:: Scribe Attestation: 08/26/25 - Lauryn Bradley, am scribing for and in the presence of Dr. Echavarria. Patient was here 2 days ago. PT and INR were normal. Hemoglobin was 13.7. There was no thrombocytopenia. Patient does not drink alcohol on a regular basis. CT scan done the abdomen pelvis with IV contrast showed no acute disease process. It did show diverticulosis without evidence of diverticulitis. No obvious rectal thickening. Heart rate here in the emergency room is right around 100. Hemoglobin is dropped from 13.7 2 days ago to 10.4. This in combination with the physical exam finding of maroon-colored blood on the glove during rectal exam justifies admission to the hospital and GI consultation. Dr. Thornton is GI physician on-call. I called Dr. Thornton and got his voicemail and left a message. I discussed the case with the hospitalist and the patient will require admission to hospital for further treatment and evaluation for his worsening anemia with continued lower GI bleed. Patient data External records reviewed:: [facility] previous records (Per chart review, patient was seen here on 08/23/25 for rectal bleed.) Clinical information provided by:: patient Social determinants that could affect healthcare access:: none Patient has the following chronic illnesses:: hemorrhoids How is presenting disease/condition affected by chronic disease/condition?: caused by Evaluation data The following diagnostics were reviewed and interpreted by me:: lab results and EKG tracing(s) Lab and/or radiology exams considered but not ordered:: none Interpretation Summary: See [facility] Medications / Prescriptions Medications or Prescriptions considered but not ordered:: none Medication administrations:: none Consultations Consultation(s) initiated? (list below): No Diagnosis GI bleed differential diagnosis: other (See MDM) Most likely diagnosis given after review of the tests above:: see clinical impression below Admission Indicated Admission indicated?: not indicated Admission Request Was there a request for admission?: No Disposition Plan Disposition Plan: Discharge Discharge Attestation Discharge Attestation: The patient and all family members were given an opportunity to ask questions and understood the discharge instructions. Discharge instructions specifically effects, indications for sooner follow up or return to the emergency department, and the expected course of current diagnosis. Patient condition: Stable Discharge Plan Plan Patient Disposition: Admit Acute Care w/in Hospital Prescriptions/Referrals Prescriptions/Med Rec: No Action hydrocortisone [Anti-Itch (HC)] 1 % cream 1 applic topical QDAY PRN (Reason: itching) Qty: 28.35 0RF Rx Instructions: Use for no more than 2 weeks celecoxib 200 mg capsule 200 mg PO QDAY diclofenac sodium 1 % gel 2 g topical QID Rx Instructions: apply to single elbow, wrist or hand; for hand includes palm/fingers/back of hand lidocaine 5 % cream 1 applic topical BID PRN (Reason: pain) Qty: 15 0RF tamsulosin [Flomax] 0.4 mg capsule 0.4 mg PO QDAY Qty: 7 0RF hydrocortisone-pramoxine 1-1 % cream 1 applic MO TID-QID PRN (Reason: itching) Qty: 30 0RF Rx Instructions: Use for no more than 2 weeks famotidine 20 mg tablet 20 mg PO QDAY Qty: 30 0RF Referrals: Tomasz Leong [Primary Care Provider] - In 1 week Problem List Clinical Impression: Acute lower gastrointestinal bleeding Patient/Caregiver Discharge Instructions Print Language: [place] Islander Stand Alone Forms: Suri Award Info., Patient Portal Info Letter
[2025-08-26 05:19] LABS: Basophils # (Auto) 0.1 Thou/mm3 (0.0-0.2); Basophils % (Auto) 1 % (0-2.5); Eosinophils # (Auto) 0.2 Thou/mm3 (0.0-0.5); Eosinophils % (Auto) 1 % (0-10); Hematocrit 32.0 % (41.0-53.0); Hemoglobin 10.4 g/dL (13.5-16.0); Immature Granulocytes Auto 0.07 Thou/mm3 (0.00-0.00); Lymphocytes # (Auto) 2.2 Thou/mm3 (1.0-4.8); Lymphocytes % (Auto) 13 % (10-50); Mean Corpuscular HGB Conc 32.5 g/dl (31.0-37.0); Mean Corpuscular Hemoglobin 28.1 pg (25.0-35.0); Mean Corpuscular Volume 87 fL (80-100); Monocytes # (Auto) 0.9 Thou/mm3 (0.0-0.8); Monocytes % (Auto) 5 % (0-12); Neutrophils # (Auto) 14.1 Thou/mm3 (1.8-7.7); Neutrophils % (Auto) 81 % (37-80); Nucleated Red Blood Cell # 0.00 Thou/mm3 (0.00-0.00); Nucleated Red Blood Cell % 0 /100 WBC (0); Platelet Count 425 Thou/mm3 (140-440); RDW Standard Deviation 41.1 fL (35.1-43.9); Red Blood Count 3.70 Miln/mm3 (4.50-5.90); White Blood Count 17.5 Thou/mm3 (3.8-10.6)
[2025-08-26 05:52] LABS: Alanine Aminotransferase 22 U/L (10-49); Albumin, Serum 4.1 gm/dL (3.5-5.0); Albumin/Globulin Ratio 1.6 (1.2-2.2); Alkaline Phosphatase 97 U/L (46-116); Anion Gap 11 (7-16); Aspartate Amino Transferase 16 U/L (0-34); BUN/Creatinine Ratio 15 Ratio (12-20); Bilirubin,Total 0.4 mg/dL (0.3-1.2); Blood Urea Nitrogen 15 mg/dL (9-23); Calcium 8.5 mg/dL (8.3-10.6); Calcium (Corrected) 8.5 mg/dL (8.5-10.1); Carbon Dioxide 23.9 mMol/L (20.0-31.0); Chloride 106 mMol/L (98-107); Creatinine (Component) 1.0 mg/dL (0.6-1.3); Estimated Creatinine Clearance 89.6 mL/min (>60); Globulin 2.5 gm/dL (2.3-3.5); Glucose 172 mg/dL (74-106); Osmolality,Calculated 286 (275-295); Potassium 4.2 mMol/L (3.4-5.1); Sodium 141 mMol/L (136-145); Total Protein 6.6 gm/dL (5.7-8.2); eGFR > 60 See Note
--- NOTE | 2025-08-26 06:03 | PD.EDADDENDU ---
Emergency Room Addendum Addendum Narrative: At 6 AM I did speak with GI specialist Dr. Thornton about this patient who agrees with admission and has agreed to consult on this patient.
[2025-08-26] MEDS: RINGERS LACTATED 1000 ML 1,000 ML 999 ML IV (06:12)
--- NOTE | 2025-08-26 07:23 | PC.NURSE ---
Pt. is here from home to room 7, pt. states he has had dark stools since Sunday, denies bright red blood in pt.'s stools, pt. states he has had nausea but no vomiting. Coffee given to , 2 warm blankets placed on pt. No s/s of distress noted at this time.
--- NOTE | 2025-08-26 07:41 | ESHP_ITS ---
<Statement entered by Jermain Lua MD - 08/31/25 15:23> I reviewed above note and agree with findings and plans. I have also personally examined the patient with medicine team and went over assessment and plan with medical team including public health internship and resident physician. <Statement entered by Tony Brenner MD - 08/26/25 16:04> Mr. Winters is a 50 y/o male with past medical history significant for hyperlipidemia, diverticulitis and hemorrhoids s/p transanal hemorrhoidal dearterialization (2022) presented to the ED complaining of hematochezia for the past 3 days. Patient states initially he came into the ED on the however he was discharged home but continued to have right red blood per rectum. Patient's last colonoscopy was approximately 5 years ago and has lost to follow- up with GI specialist. CT of the abdomen pelvis shows prominent sigmoid diverticulosis.. Labs are significant for leukocytosis likely reactive and hemoglobin on admission is 10.4 and hematocrit 32, GI is consulted and patient will undergo colonoscopy. Patient was seen and examined by me personally. I have directly supervised and reviewed documentation by the team resident and agree with its findings. ------- Plan of care was discussed with the attending, Dr. Stoney Brenner, PGY-2 Documentation for date of: 08/26/25 HPI History of Present Illness History of present illness: Mr. Winters is a 50 y/o male with PMH HLD, prediabetes, and hemorrhoids s/p transanal hemorrhoidal dearterialization (2022) who preesnted to the ED on 08/26 with 4 days of large volume hematochezia. He reports that the bleeding started as dark stools and then progressed to bright red blood with clots that filled the toilet . Denies rectal pain, N/V, recent illness, abdominal pain, constipation, dysuria, urinary frequency urgency or hesitancy. Does note that the bloody stool has a loose consistency. He denies dizziness, presyncope, syncope, falls. Patient reports that he had a colonoscopy 5 years ago, found diverticulosis vs diverticulitis per pt. When asked why he's getting colonoscopies at such a young age he reports that the indication was hemorrhoids. Patient was recently seen in the ED on 08/23 with similar presentation. Was given famotidine and chose to f/u outpatient with GI. Blood cultures taken at that time NGTD. CT a/p w/o on 08/23 showed sigmoid diverticlosis (present on 2022 CT as well). PCP: [facility]. Has outpatient GI appt set up next month. ED course: Afebrile. Tachycardic to 123. BP 105-130/50-90s. Labs significant for WBC 17.5, hgb 10.4 (decreased from 13 on 08/23), HCT 32. EKG showed sinus tachy 103, QTc 398. Given 1L LR in ED. GI consulted. PMHx: Prediabetes, HLD, L knee OA (gets cortisone injections with Dr. Wilson), hemorrhoids s/p THD Allergies: NKDA Home meds: statin (does not know which one) SgHx: Transanal hemorrhoidal dearterialization ([address] Garcia) SHx: Former smoker, quit >10 years ago. 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 Occasional EtOH use. FHx: Denies hx of colon cancer Review of Systems Review of Systems Narrative Review of Systems: 14 point ROS negative other than HPI Exam Vital Signs Temp Pulse Resp BP Pulse Ox O2 Del Method 98.0 F 86 16 115/69 98 Room Air 08/26/25 07:15 08/26/25 07:15 08/26/25 07:15 08/26/25 07:15 08/26/25 07:15 08/26/25 07:15 Narrative Exam General: No acute distress, well nourished Eye: PERRL, EOMI, normal conjunctiva, no scleral icterus HENT: Normocephalic, atraumatic, normal hearing, moist oral mucosa Neck: Supple, non-tender, no JVD, no lymphadenopathy Lungs: Clear to auscultation bilaterally, non-labored respirations, symmetric chest rise, no use of accessory muscles Heart: Normal S1 and S2, no S3 or S4 appreciated. Normal rate and regular rhythm, no murmurs, rubs gallops, 1+ LE pitting edema b/l Abdomen: Soft, non-tender, non-distended, normal bowel sounds. No guarding or rebound tenderness. Musculoskeletal: Normal range of motion and strength, no tenderness or swelling Skin: Skin is warm, dry, no rashes or lesions. Neurologic: Alert, awake and oriented x3. CN II-XII grossly intact. No focal neuro deficits. No signs of meningeal irritation noted. Psychiatric: Cooperative, appropriate mood and affect Results: Labs 08/26/25 04:47 08/26/25 04:47 Labs: Short CBC 08/26/25 Range/Units 04:47 WBC 17.5 H (3.8-10.6) Thou/mm3 Hgb 10.4 L D (13.5-16.0) g/dL Hct 32.0 L D (41.0-53.0) % Plt Count 425 D (140-440) Thou/mm3 BMP 08/26/25 04:47 Sodium 141 Potassium 4.2 Chloride 106 Carbon Dioxide 23.9 BUN 15 Creatinine 1.0 Glucose 172 H D Calcium 8.5 Liver Function 08/26/25 Range/Units 04:47 Total Bilirubin 0.4 (0.3-1.2) mg/dL AST 16 (0-34) U/L ALT 22 (10-49) U/L Alkaline Phosphatase 97 (46-116) U/L Albumin 4.1 D (3.5-5.0) gm/dL Quality Measures Quality Measures none Medications Home Medications and Allergies Home Medications ?Medication ?Instructions ?Recorded ?Confirmed ?Type celecoxib 200 mg capsule 200 mg PO QDAY 08/12/2412/02 History diclofenac sodium 1 % topical gel 2 g topical QID 02/2806/09/25 History Allergies Allergy/AdvReac Type Severity Reaction Status Date / Time No Known Allergies Allergy Verified 08/26/25 03:33 Visit Medications Discontinued Medications Lactated Ringer's (Lactated Ringers) 1,000 mls @ 999 mls/hr IV .Q1H1M ONE Stop: 08/26/25 06:58 Last Admin: 08/26/25 06:12 Dose: 999 mls/hr Assessment & Plan Plan Mr. Winters is a 50 y/o male with PMH HLD, prediabetes, and hemorrhoids s/p transanal hemorrhoidal dearterialization (2022) who preesnted to the ED on 08/26 with 4 days of large volume hematochezia. Admitted for lower GI bleed. #Lower GI bleed #Hemorrhoids s/p transanal hemorrhoidal dearterialization (2022) #Hx sigmoid diverticulosis Initial presentation: Hematochezia x4 days. No abdominal or rectal pain 08/23 CT a/p w/o: sigmoid diverticulosis Plan: - CTM hgb - Consulted GI, appreciate recs - NPO #Normocytic anemia i/s/o lower GI bleed On admit: hgb 10.4, HCT 32, MCV87 Plan: - CTM hgb - Transfuse pRBC if hgb <7 - Manage GI bleed as above #Leukocytosis Most likely reactive Plan: - CTM with daily CBC #HLD On statin at home, unknown which med or dose Plan: - Pending lipid panel #Predaibetes Plan: - Pending A1C Checklist Dispo: Admit for lower GI bleed Lines: PIV Diet: NPO Bowel Reg: doc/senna PRN VTE ppx: SCD GI ppx: n/a Pain mgmt: Tylenol PRN Code status: full Plan discussed with Dr. Gianfranco Brenner and Dr. Stoney Yee MD PGY1
[2025-08-26 08:09] LABS: Glucose Estimated Average 120 mg/dL (80-131); Hemoglobin A1C 5.8 % Hgb (4.8-6.0)
[2025-08-26 08:12] LABS: Cardiac Risk Estimate 3.7 RATIO (4.0-6.7); Cholesterol 96 mg/dL (132-200); HDL Cholesterol 26 mg/dL (40-60); LDL Cholesterol,Calculated 48 mg/dL (0-130); Triglycerides 112 mg/dL (30-150)
--- NOTE | 2025-08-26 10:18 | PC.LAC ---
will bring home medications so med rec can be done
[2025-08-26 13:05] LABS: Alcohol, Urine Negative (Negative); Amphetamine/Methamp Scrn,U Negative (Negative); Barbiturate Screen,Urine Negative (Negative); Benzodiazepines Screen,Urine Negative (Negative); Benzoylecgonine Screen, Ur Negative (Negative); Fentanyl Screen,Urine Negative (Negative); Opiate Screen,Urine Negative (Negative); THC Screen,Urine Negative (Negative)
--- NOTE | 2025-08-26 13:55 | PC.NURSE ---
waiting for family to bring medications to do med rec
--- NOTE | 2025-08-26 14:45 | PD.RESCONSUL ---
HPI Data of Consult Consult date: 08/26/25 Requesting Physician: Jermain Lua MD Admitting Provider: Jermain Lua MD Attending Provider: Jermain Lua MD Primary Care Provider: Tomasz Hodge Consult Narrative Reason for consult: Lower GI bleed History of present illness: Patient is a 50-year-old male with significant past medical history of HLD, prediabetes, and hemorrhoids s/p transanal hemorrhoidal dearterialization (2022) who presented to the ED on 08/26/2025 with 4 days of large volume hematochezia. Patient reportedly has been having hematochezia since Sunday he started as dark stool and then progressed to bright red per rectum with clots. He reported coming to the ED for this presentation and was sent home to follow-up GI outpatient. However patient was returned to the ED because of worsening bright red blood stool per rectum associated with lightheadedness and nausea. The patient reports experiencing frequent bowel movements every 15 minutes since last night, accompanied by diarrhea and hematochezia. Currently, he has a sensation of needing to pass stool, but when attempting to do so, he observes bright red blood per rectum on the toilet. In total, he has had 12 bowel movements since last night. He denies any abdominal pain, hematuria, fever, or chills. The patient notes that he underwent a colonoscopy approximately 7 years ago in [place], which revealed diverticulosis. However, he is concerned about the possibility of colorectal cancer, as his agency development manager advised him that history of multiple hematochezia may indicate higher risk. When questioned further, the patient denies any recent weight loss, family history of colorectal cancer, history of inflammatory bowel disease, or heavy alcohol consumption. Significant labs/imaging - Abdominal/pelvis CT showed prominent sigmoid diverticulosis, no diverticulitis, fat-containing ventral hernias on the left side. - WBC 17.5, hemoglobin 10.4, hematocrit 32. Gastroenterology consulted for lower GI bleed evaluation and management. cc:: cc: Jermain Lua MD Exam Vital Signs Temp Pulse Resp BP Pulse Ox O2 Del Method 97.1 F 19 L 18 119/67 98 Room Air 08/26/25 10:21 08/26/25 10:21 08/26/25 08:53 08/26/25 10:21 08/26/25 10:21 08/26/25 10:21 Narrative Exam General: Alert, no acute distress.Conversational and non-toxic appearing. Skin: Warm, dry, intact. No rash or ecchymoses. Head: Normocephalic, atraumatic. Eye: Normal conjunctiva, PERRL. Throat: Oral mucosa moist. No obvious lesions in oropharynx. Cardiovascular: Regular rate and rhythm, no murmur, +S1/S2. Respiratory: Lungs are clear to auscultation, respirations unlabored, no crackles, no wheezing. Gastrointestinal: Soft, nontender, non-distended. No guarding or rebound tenderness. Extremities: No edema, no cyanosis, no clubbing. Neuro: Alert and oriented x3.No focal deficits observed. Conversant, moving all extremities. No overt cerebellar signs/incoordination. Psychiatric: Cooperative, appropriate affect Results Labs 08/26/25 04:47 08/26/25 04:47 Labs: Short CBC 08/26/25 Range/Units 04:47 WBC 17.5 H (3.8-10.6) Thou/mm3 Hgb 10.4 L D (13.5-16.0) g/dL Hct 32.0 L D (41.0-53.0) % Plt Count 425 D (140-440) Thou/mm3 BMP 08/26/25 04:47 Sodium 141 Potassium 4.2 Chloride 106 Carbon Dioxide 23.9 BUN 15 Creatinine 1.0 Glucose 172 H D Calcium 8.5 Liver Function 08/26/25 Range/Units 04:47 Total Bilirubin 0.4 (0.3-1.2) mg/dL AST 16 (0-34) U/L ALT 22 (10-49) U/L Alkaline Phosphatase 97 (46-116) U/L Albumin 4.1 D (3.5-5.0) gm/dL Quality Measures Quality Measures none Medications Home Medications and Allergies Home Medications ?Medication ?Instructions ?Recorded ?Confirmed ?Type atorvastatin 20 mg tablet (Lipitor) 20 mg PO QDAY 08/26/25 08/26/25 History Allergies Allergy/AdvReac Type Severity Reaction Status Date / Time No Known Allergies Allergy Verified 08/26/25 03:33 Visit Medications Acetaminophen (Acetaminophen 325 Mg Tablet) 650 mg PO Q6H PRN PRN Reason: Fever >100.3, pain 1-3 Stop: 09/25/25 07:40 Ondansetron HCl (Ondansetron Inj 2 Mg/Ml Inj 2 Ml) 4 mg IVP Q6H PRN; Protocol PRN Reason: NAUSEA OR VOMITING Stop: 09/25/25 07:40 Polyethylene Glycol/Electrolytes ([place]/Nahco3/Kwame/Peg (Golytely) 4,000 Ml Btl) 4,000 ml PO X1 ONE Stop: 08/26/25 21:01 Sennosides (Senna/Docusate Sod 1 Tab Tablet) 1 tab PO QDAY PRN; Protocol PRN Reason: CONSTIPATION Stop: 09/25/25 07:40 Discontinued Medications Lactated Ringer's (Lactated Ringers) 1,000 mls @ 999 mls/hr IV .Q1H1M ONE Stop: 08/26/25 06:58 Last Infusion: 08/26/25 07:13 Dose: Infused Influenza Virus Vaccine Quadrival (Influenza Virus 0.5 Ml Syringe ) 0.5 ml IMi .ONCE ONE Stop: 08/26/25 10:05 Assessment & Plan Plan Patient is a 50-year-old male with significant past medical history of HLD, prediabetes, and hemorrhoids s/p transanal hemorrhoidal dearterialization (2022) who presented to the ED on 08/26/2025 with 4 days of large volume hematochezia. #Lower GI bleed #Hematochezia #Hemorrhoids s/p transanal hemorrhoidal dearterialization (2022) #Hx sigmoid diverticulosis #Normocytic anemia Patient was returned to the ED because of worsening bright red blood stool per rectum associated with lightheadedness and nausea. The patient reports experiencing frequent bowel movements every 15 minutes since last night, accompanied by diarrhea and hematochezia. Denies abdominal pain, rectal pain, fever and chills. Concern for lower GI bleed in the setting of previous diverticulosis and internal hemorrhoids. Abdominal/pelvis CT showed prominent sigmoid diverticulosis, no diverticulitis, fat-containing ventral hernias on the left side. WBC 17.5, hemoglobin 10.4, hematocrit 32. - Start patient on clear liquid diet - Start GoLytely-plan for colonoscopy tomorrow - Serial CBC - Continue to monitor H&H, transfuse hemoglobin less than 7 or symptomatic Patient seen and assessed under supervision of attending physician Dr.Kumar Kallie Hughes MD PGY-1, Internal Medicine Please note: this document was transcribed using voice recognition technology; minor inaccuracies may be present. Attending Provider Attestation/Addendum Patient evaluated Medication with tool and die assembler Patient with hematochezia Consent obtained for fiberoptic colonoscopy with possible biopsy possible therapeutic intervention under intravenous moderate sedation scheduled for tomorrow GoLytely prep Clear liquid diet to continue as long as the patient is drinking GoLytely Thank you for the opportunity to participate in the care of this patient
[2025-08-26] MEDS: NA SU/NAHCO3/KC/PEG (Golytely) 4,000 ML BTL 4000 ML PO (21:26)
[2025-08-27] VITALS (18 sets, daily range): BP systolic 115–141; BP diastolic 74–94; PULSE 80–114; RESP 6–20; TEMP 36.2–36.6; O2SAT 95–100
[2025-08-27 05:55] LABS: Basophils # (Auto) 0.1 Thou/mm3 (0.0-0.2); Basophils % (Auto) 1 % (0-2.5); Eosinophils # (Auto) 0.4 Thou/mm3 (0.0-0.5); Eosinophils % (Auto) 4 % (0-10); Hematocrit 27.9 % (41.0-53.0); Hemoglobin 9.1 g/dL (13.5-16.0); Immature Granulocytes Auto 0.03 Thou/mm3 (0.00-0.00); Lymphocytes # (Auto) 2.3 Thou/mm3 (1.0-4.8); Lymphocytes % (Auto) 26 % (10-50); Mean Corpuscular HGB Conc 32.6 g/dl (31.0-37.0); Mean Corpuscular Hemoglobin 28.3 pg (25.0-35.0); Mean Corpuscular Volume 87 fL (80-100); Monocytes # (Auto) 0.6 Thou/mm3 (0.0-0.8); Monocytes % (Auto) 7 % (0-12); Neutrophils # (Auto) 5.7 Thou/mm3 (1.8-7.7); Neutrophils % (Auto) 63 % (37-80); Nucleated Red Blood Cell # 0.00 Thou/mm3 (0.00-0.00); Nucleated Red Blood Cell % 0 /100 WBC (0); Platelet Count 384 Thou/mm3 (140-440); RDW Standard Deviation 42.1 fL (35.1-43.9); Red Blood Count 3.22 Miln/mm3 (4.50-5.90); White Blood Count 9.1 Thou/mm3 (3.8-10.6)
[2025-08-27 06:11] LABS: Anion Gap 8 (7-16); BUN/Creatinine Ratio 9 Ratio (12-20); Blood Urea Nitrogen 8 mg/dL (9-23); Calcium 8.8 mg/dL (8.3-10.6); Carbon Dioxide 30.0 mMol/L (20.0-31.0); Chloride 105 mMol/L (98-107); Creatinine (Component) 0.9 mg/dL (0.6-1.3); Estimated Creatinine Clearance 99.6 mL/min (>60); Glucose 106 mg/dL (74-106); Magnesium 1.9 mg/dL (1.6-2.6); Osmolality,Calculated 283 (275-295); Phosphorous 3.5 mg/dL (2.4-5.1); Potassium 3.6 mMol/L (3.4-5.1); Sodium 143 mMol/L (136-145); eGFR > 60 See Note
--- NOTE | 2025-08-27 08:10 | ESPR_ITS ---
<Statement entered by Jermain Lua MD - 09/08/25 08:30> I reviewed above note and agree with findings and plans. I have also personally examined the patient with medicine team and went over assessment and plan with medical team including international project engineer and resident physician. Documentation for date of: 08/27/25 Subjective Subjective Interval history: NAEO. VSS. Denies abdominal pain, rectal pain, N/V. Finished GoLytely, clear stools. Pending colonoscopy. Had an episode of black and red stool last night. Exam Vital Signs Temp Pulse Resp BP Pulse Ox O2 Del Method 97.6 F 80 18 115/76 99 Room Air 08/27/25 07:43 08/27/25 07:43 08/27/25 07:43 08/27/25 07:43 08/27/25 07:43 08/27/25 07:43 Narrative Exam General: No acute distress, well nourished Eye: PERRL, EOMI, normal conjunctiva, no scleral icterus HENT: Normocephalic, atraumatic, normal hearing, moist oral mucosa Neck: Supple, non-tender, no JVD, no lymphadenopathy Lungs: Clear to auscultation bilaterally, non-labored respirations, symmetric chest rise, no use of accessory muscles Heart: Normal S1 and S2, no S3 or S4 appreciated. Normal rate and regular rhythm, no murmurs, rubs gallops, 1+ LE pitting edema b/l Abdomen: Soft, non-tender, non-distended, normal bowel sounds. No guarding or rebound tenderness. Musculoskeletal: Normal range of motion and strength, no tenderness or swelling Skin: Skin is warm, dry, no rashes or lesions. Neurologic: Alert, awake and oriented x3. CN II-XII grossly intact. No focal neuro deficits. No signs of meningeal irritation noted. Psychiatric: Cooperative, appropriate mood and affect Objective Labs 08/27/25 04:58 08/27/25 04:58 Labs: Laboratory Results - last 24 hr 08/26/25 08/26/25 08/27/25 04:47 12:38 04:58 WBC 9.1 D RBC 3.22 L Hgb 9.1 L Hct 27.9 L MCV 87 MCH 28.3 MCHC 32.6 RDW Std Deviation 42.1 Plt Count 384 D Neut % (Auto) 63 Lymph % (Auto) 26 [place] % (Auto) 7 Eos % (Auto) 4 Baso % (Auto) 1 Neut # (Auto) 5.7 Lymph # (Auto) 2.3 [place] # (Auto) 0.6 Eos # (Auto) 0.4 Baso # (Auto) 0.1 Immature Gran # (Auto) 0.03 H Absolute Nucleated RBC 0.00 Immature Gran % 0 Nucleated RBC % 0 Sodium 143 Potassium 3.6 D Chloride 105 Carbon Dioxide 30.0 Anion Gap 8 BUN 8 L Creatinine 0.9 Estim Creat Clear Calc 99.6 eGFR > 60 BUN/Creatinine Ratio 9 L Glucose 106 D Calculated Osmolality 283 Calcium 8.8 Phosphorus 3.5 Magnesium 1.9 Triglycerides 112 Cholesterol 96 L LDL Cholesterol, Calc 48 HDL Cholesterol 26 L Cholesterol/HDL Ratio 3.7 L Urine Opiates Screen Negative Urine Fentanyl Screen Negative Ur Barbiturates Screen Negative U Amphetamin/Meth Scrn Negative U Benzodiazepines Scrn Negative U Cocaine Metab Screen Negative U Marijuana (THC) Screen Negative Urine Alcohol Negative Quality Measures Quality Measures none Assessment & Plan Assessment Current Active Medications: Generic Name Dose Route Start Last Admin Trade Name Freq PRN Reason Stop Dose Admin Acetaminophen 650 mg 08/26/25 07:41 Acetaminophen 325 Mg Tablet PO 09/25/25 07:40 Q6H PRN Fever >100.3, pain 1-3 Ondansetron HCl 4 mg 08/26/25 07:41 Ondansetron Inj 2 Mg/Ml Inj 2 Ml IVP 09/25/25 07:40 Q6H PRN NAUSEA OR VOMITING Protocol Sennosides 1 tab 08/26/25 07:41 Senna/Docusate Sod 1 Tab Tablet PO 09/25/25 07:40 QDAY PRN CONSTIPATION Protocol Plan Mr. Winters is a 50 y/o male with PMH HLD, prediabetes, and hemorrhoids s/p transanal hemorrhoidal dearterialization (2022) who preesnted to the ED on 08/26 with 4 days of large volume hematochezia. Admitted for lower GI bleed. #Lower GI bleed #Hemorrhoids s/p transanal hemorrhoidal dearterialization (2022) #Hx sigmoid diverticulosis Initial presentation: Hematochezia x4 days. No abdominal or rectal pain 08/23 CT a/p w/o: sigmoid diverticulosis Plan: - CTM hgb - Consulted GI, appreciate recs - Pending colonoscopy - Nishi Granado #Normocytic anemia i/s/o lower GI bleed On admit: hgb 10.4, HCT 32, MCV87 --> hgb 9.1 Plan: - CTM hgb - Transfuse pRBC if hgb <7 - Manage GI bleed as above #Leukocytosis - resolved Most likely reactive Plan: - CTM with daily CBC #HLD On statin at home, unknown which med or dose Lipid panel WNL Plan: - Atorvastatin 20 mg PO daily (home med) #Predaibetes A1C 5.8 Plan: - can be managed with diet and exercise - f/u with PCP outpatient Checklist Dispo: Pending colonoscopy Lines: PIV Diet: Clears Bowel Reg: doc/senna PRN VTE ppx: SCD GI ppx: n/a Pain mgmt: Tylenol PRN Code status: full Plan discussed with Dr. Stoney Yee MD PGY1
--- NOTE | 2025-08-27 11:57 | PC.SS ---
Patient is alert/oriented. Patient Yi speaking only. Programmer Analyst Consultant present. Patient was able to verify demographics. Patient is independent with ADL's. Patient admitted for hematochezia. Patient resides @ [facility] [address] [place] [address]. PCP: Tomasz Leong NP. Last appt. was 3 weeks ago. Pharmacy: [facility]. Patient to d/c home. Alt medical decision maker: , Cindy Mcconnell,
--- NOTE | 2025-08-27 20:27 | SUR.PHASEI ---
2026: received pt from OR via [facility]. received report from KARLO Helton. pt sleepy but arousable when called his name. no s/s of resp. distress or discomfort. no s/s of pain or discomfort.
--- NOTE | 2025-08-27 20:50 | SUR.PHASEI ---
report given to KARLO Smith
--- NOTE | 2025-08-27 20:57 | SUR.PHASEI ---
2056: transferred back to his room. pt alert and oriented. no s/s of resp. distress or discomfort. no s/s of pain or discomfort.
[2025-08-27] MEDS: ATORVASTATIN CALCIUM 20 MG TABLET PO (21:19)
[2025-08-27] MEDS: FOLIC ACID 1 MG TABLET PO (21:19)
[2025-08-28] VITALS (7 sets, daily range): BP systolic 114–128; BP diastolic 69–82; PULSE 74–97; RESP 14–19; TEMP 36.2–36.8; O2SAT 94–100; BMI 36.0
[2025-08-28 05:13] LABS: Basophils # (Auto) 0.0 Thou/mm3 (0.0-0.2); Basophils % (Auto) 0 % (0-2.5); Eosinophils # (Auto) 0.0 Thou/mm3 (0.0-0.5); Eosinophils % (Auto) 0 % (0-10); Hematocrit 28.3 % (41.0-53.0); Hemoglobin 9.3 g/dL (13.5-16.0); Immature Granulocytes Auto 0.09 Thou/mm3 (0.00-0.00); Lymphocytes # (Auto) 0.8 Thou/mm3 (1.0-4.8); Lymphocytes % (Auto) 6 % (10-50); Mean Corpuscular HGB Conc 32.9 g/dl (31.0-37.0); Mean Corpuscular Hemoglobin 28.2 pg (25.0-35.0); Mean Corpuscular Volume 86 fL (80-100); Monocytes # (Auto) 0.1 Thou/mm3 (0.0-0.8); Monocytes % (Auto) 0 % (0-12); Neutrophils # (Auto) 12.7 Thou/mm3 (1.8-7.7); Neutrophils % (Auto) 93 % (37-80); Nucleated Red Blood Cell # 0.00 Thou/mm3 (0.00-0.00); Nucleated Red Blood Cell % 0 /100 WBC (0); Platelet Count 442 Thou/mm3 (140-440); RDW Standard Deviation 41.2 fL (35.1-43.9); Red Blood Count 3.30 Miln/mm3 (4.50-5.90); White Blood Count 13.6 Thou/mm3 (3.8-10.6)
[2025-08-28 05:38] LABS: Anion Gap 10 (7-16); BUN/Creatinine Ratio 9 Ratio (12-20); Blood Urea Nitrogen 7 mg/dL (9-23); Calcium 8.8 mg/dL (8.3-10.6); Carbon Dioxide 27.3 mMol/L (20.0-31.0); Chloride 105 mMol/L (98-107); Creatinine (Component) 0.8 mg/dL (0.6-1.3); Estimated Creatinine Clearance 112.0 mL/min (>60); Glucose 145 mg/dL (74-106); Magnesium 2.3 mg/dL (1.6-2.6); Osmolality,Calculated 284 (275-295); Phosphorous 4.1 mg/dL (2.4-5.1); Potassium 3.8 mMol/L (3.4-5.1); Sodium 142 mMol/L (136-145); eGFR > 60 See Note
[2025-08-28] MEDS: FOLIC ACID 1 MG TABLET PO (08:35)
--- NOTE | 2025-08-28 14:07 | ESPR_ITS ---
<Statement entered by Jermain Lua MD - 09/08/25 08:31> I reviewed above note and agree with findings and plans. I have also personally examined the patient with medicine team and went over assessment and plan with medical team including international nurse and resident physician. Documentation for date of: 08/28/25 Subjective Subjective Interval history: * Patient seen and examined at bedside. * Colonoscopy significant for perianal hemorrhoids, diffuse areas of erythematous mucosa in the sigmoid and descending colon, biopsies were taken. * Continuing on GI recommendations of azathioprine, sulfasalazine, folic acid. Exam Vital Signs Temp Pulse Resp BP Pulse Ox O2 Del Method O2 Flow Rate 97.5 F 95 18 123/73 97 Room Air 3 08/28/25 11:54 08/28/25 12:00 08/28/25 11:54 08/28/25 11:54 08/28/25 11:54 08/28/25 11:54 08/27/25 20:16 Narrative Exam General: Awake and in no acute distress. Conversational and non-toxic appearing. Neurologic: GCS 15. Alert and oriented x3, no gross neurological deficit, and patient able to move all 4 extremities. HEENT: Normocephalic, atraumatic, mucous membranes moist. Pupils reactive to light. Heart: Regular rate and rhythm, normal S1 and S2, no murmurs. Lungs: Clear to auscultation bilaterally with no wheezing or crackles. Abdomen: Firm, distended, nontender. No guarding or rebound tenderness. Extremities: No edema. 2+ radial and dorsalis pedis pulses bilaterally. Skin: Warm. Dry. No rash or ecchymoses. Objective Labs 08/28/25 04:23 08/28/25 04:23 Labs: Laboratory Results - last 24 hr 08/28/25 04:23 WBC 13.6 H D RBC 3.30 L Hgb 9.3 L Hct 28.3 L MCV 86 MCH 28.2 MCHC 32.9 RDW Std Deviation 41.2 Plt Count 442 H D Neut % (Auto) 93 H Lymph % (Auto) 6 L [place] % (Auto) 0 Eos % (Auto) 0 Baso % (Auto) 0 Neut # (Auto) 12.7 H Lymph # (Auto) 0.8 L [place] # (Auto) 0.1 Eos # (Auto) 0.0 Baso # (Auto) 0.0 Immature Gran # (Auto) 0.09 H Absolute Nucleated RBC 0.00 Immature Gran % 1 H Nucleated RBC % 0 Sodium 142 Potassium 3.8 Chloride 105 Carbon Dioxide 27.3 Anion Gap 10 BUN 7 L Creatinine 0.8 Estim Creat Clear Calc 112.0 eGFR > 60 BUN/Creatinine Ratio 9 L Glucose 145 H Calculated Osmolality 284 Calcium 8.8 Phosphorus 4.1 Magnesium 2.3 Quality Measures Quality Measures none Assessment & Plan Assessment Current Active Medications: Generic Name Dose Route Start Last Admin Trade Name Freq PRN Reason Stop Dose Admin Acetaminophen 650 mg 08/26/25 07:41 Acetaminophen 325 Mg Tablet PO 09/25/25 07:40 Q6H PRN Fever >100.3, pain 1-3 Atorvastatin Calcium 20 mg 08/27/25 21:00 08/27/25 21:19 Atorvastatin Calcium 20 Mg Tablet PO 09/26/25 20:59 20 mg HS TAYLA Administration Azathioprine 50 mg 08/27/25 20:30 08/28/25 08:35 Azathioprine 50 Mg Tablet PO 09/26/25 20:29 50 mg QDAY TAYLA Administration Folic Acid 1 mg 08/27/25 20:30 08/28/25 08:35 Folic Acid 1 Mg Tablet PO 09/26/25 20:29 1 mg QDAY TAYLA Administration Methylprednisolone Sodium Succinate 40 mg 08/27/25 21:00 08/28/25 08:35 Methylprednisolone Sod Succ 40 Mg/Ml Vial IVP 09/03/25 20:59 40 mg Q12HR TAYLA Administration Ondansetron HCl 4 mg 08/26/25 07:41 Ondansetron Inj 2 Mg/Ml Inj 2 Ml IVP 09/25/25 07:40 Q6H PRN NAUSEA OR VOMITING Protocol Sennosides 1 tab 08/26/25 07:41 Senna/Docusate Sod 1 Tab Tablet PO 09/25/25 07:40 QDAY PRN CONSTIPATION Protocol Sulfasalazine 1,000 mg 08/27/25 21:00 08/28/25 08:35 Sulfasalazine 500 Mg Tablet PO 09/26/25 20:59 1,000 mg BID TAYLA Administration Plan Summary: Mr. Winters is a 50 y/o male with PMH HLD, prediabetes, and hemorrhoids s/p transanal hemorrhoidal dearterialization (2022) who preesnted to the ED on 08/26 with 4 days of large volume hematochezia. Admitted for lower GI bleed. #Lower GI bleed #Hemorrhoids s/p transanal hemorrhoidal dearterialization (2022) #Hx sigmoid diverticulosis * Initial presentation: Hematochezia x4 days. No abdominal or rectal pain * 08/23 CT a/p w/o: sigmoid diverticulosis * Colonoscopy 08/27/2025 significant for perianal hemorrhoids, diffuse areas of erythematous mucosa in the sigmoid and descending colon, biopsies were taken. Plan: * Solu-Medrol 40 mg IV push every 12 hours * Azathioprine 50 mg p.o. daily * Sulfasalazine 1 g twice daily and increase to 4G * Folic acid 1 mg daily * Low fiber diet * CTM hgb, currently stable #Normocytic anemia * i/s/o lower GI bleed * On admit: hgb 10.4, HCT 32, MCV87 --> hgb 9.1 Plan: * CTM hgb * Transfuse pRBC if hgb <7 * Manage GI bleed as above #Leukocytosis * WBC count increased from 9.1 - 13.6 overnight * Likely due to methylprednisolone Plan: * CTM with daily CBC #HLD * On statin at home, unknown which med or dose * Lipid panel WNL Plan: * Atorvastatin 20 mg PO daily (home med) #Predaibetes * A1C 5.8 Plan: * Can be managed with diet and exercise * f/u with PCP outpatient Checklist Dispo: Colonoscopy completed, biopsies taken, started azathioprine, sulfasalazine, methylprednisolone. Lines: PIV Diet: Low fiber diet Bowel Reg: doc/senna PRN VTE ppx: SCD GI ppx: n/a Pain mgmt: Tylenol PRN Code status: full Patient was seen and discussed with my attending physician Dr. Stoney GARCIA. Julian Mcleod DO PGY-1.
--- NOTE | 2025-08-28 14:45 | PC.SS ---
rounding note: Patient had colonoscopy on 08/27. Continue to monitor. D/c within 1-2 days home.
--- NOTE | 2025-08-28 17:57 | ESPR_ITS ---
Documentation for date of: 08/28/25 Subjective Subjective Interval history: Patient evaluated Hemoglobin hematocrit 9.0 and 28.9 Colonoscopy findings are consistent with inflammatory bowel disease involving the rectum sigmoid colon descending colon and splenic flexure rest of the colon is spared including terminal ileum Exam Vital Signs Temp Pulse Resp BP Pulse Ox O2 Del Method O2 Flow Rate 98.2 F 88 15 114/69 97 Room Air 3 08/28/25 16:00 08/28/25 16:00 08/28/25 16:00 08/28/25 16:00 08/28/25 16:00 08/28/25 16:00 08/27/25 20:16 Objective Labs 08/28/25 04:23 08/28/25 04:23 Labs: Laboratory Results - last 24 hr 08/28/25 04:23 WBC 13.6 H D RBC 3.30 L Hgb 9.3 L Hct 28.3 L MCV 86 MCH 28.2 MCHC 32.9 RDW Std Deviation 41.2 Plt Count 442 H D Neut % (Auto) 93 H Lymph % (Auto) [address] [place] % (Auto) 0 Eos % (Auto) 0 Baso % (Auto) 0 Neut # (Auto) 12.7 H Lymph # (Auto) 0.[address] [place] # (Auto) 0.1 Eos # (Auto) 0.0 Baso # (Auto) 0.0 Immature Gran # (Auto) 0.09 H Absolute Nucleated RBC 0.00 Immature Gran % 1 H Nucleated RBC % 0 Sodium 142 Potassium 3.8 Chloride 105 Carbon Dioxide 27.3 Anion Gap 10 BUN 7 L Creatinine 0.8 Estim Creat Clear Calc 112.0 eGFR > 60 BUN/Creatinine Ratio 9 L Glucose 145 H Calculated Osmolality 284 Calcium 8.8 Phosphorus 4.1 Magnesium 2.3 Impressions Impression: Newly diagnosed acute inflammatory bowel disease/ulcerative colitis Basically involving left side of the colon with sparing up of the transverse colon and ascending colon cecum and terminal ileum Continue current management Assessment & Plan Time Spent With Patient Time: Total time spent is greater than 50% in coordination of care (as documented) at patient's floor/unit and/or counseling patient:
[2025-08-28] MEDS: ATORVASTATIN CALCIUM 20 MG TABLET PO (20:06)
--- NOTE | 2025-08-28 20:58 | PC.NURSE ---
pt and has questions re result of colonoscopy and medications- Updated re plan of care with Martha gray as educational sign language interpreter.
[2025-08-29] VITALS: BP 122/71; PULSE 67; PULSE 69; RESP 17; TEMP 36.4; O2SAT 95
[2025-08-29 04:00] VITALS: BP 103/69; PULSE 72; PULSE 81; RESP 16; TEMP 36.8; O2SAT 95
[2025-08-29 06:10] LABS: Basophils # (Auto) 0.0 Thou/mm3 (0.0-0.2); Basophils % (Auto) 0 % (0-2.5); Eosinophils # (Auto) 0.0 Thou/mm3 (0.0-0.5); Eosinophils % (Auto) 0 % (0-10); Hematocrit 25.5 % (41.0-53.0); Immature Granulocytes Auto 0.06 Thou/mm3 (0.00-0.00); Lymphocytes # (Auto) 1.3 Thou/mm3 (1.0-4.8); Lymphocytes % (Auto) 8 % (10-50); Mean Corpuscular HGB Conc 32.9 g/dl (31.0-37.0); Mean Corpuscular Hemoglobin 27.8 pg (25.0-35.0); Mean Corpuscular Volume 84 fL (80-100); Monocytes # (Auto) 0.5 Thou/mm3 (0.0-0.8); Monocytes % (Auto) 3 % (0-12); Neutrophils # (Auto) 14.1 Thou/mm3 (1.8-7.7); Neutrophils % (Auto) 88 % (37-80); Nucleated Red Blood Cell # 0.00 Thou/mm3 (0.00-0.00); Nucleated Red Blood Cell % 0 /100 WBC (0); Platelet Count 441 Thou/mm3 (140-440); RDW Standard Deviation 39.8 fL (35.1-43.9); Red Blood Count 3.02 Miln/mm3 (4.50-5.90); White Blood Count 16.0 Thou/mm3 (3.8-10.6)
[2025-08-29 06:12] LABS: Hemoglobin 8.4 g/dL (13.5-16.0)
[2025-08-29 06:35] LABS: Anion Gap 9 (7-16); BUN/Creatinine Ratio 10 Ratio (12-20); Blood Urea Nitrogen 9 mg/dL (9-23); Calcium 9.1 mg/dL (8.3-10.6); Carbon Dioxide 24.7 mMol/L (20.0-31.0); Chloride 107 mMol/L (98-107); Creatinine (Component) 0.9 mg/dL (0.6-1.3); Estimated Creatinine Clearance 97.3 mL/min (>60); Glucose 147 mg/dL (74-106); Magnesium 2.4 mg/dL (1.6-2.6); Osmolality,Calculated 282 (275-295); Phosphorous 4.6 mg/dL (2.4-5.1); Potassium 3.9 mMol/L (3.4-5.1); Sodium 141 mMol/L (136-145); eGFR > 60 See Note
[2025-08-29 08:00] VITALS: BP 118/71; PULSE 71; PULSE 80; RESP 16; TEMP 36.5; O2SAT 96
[2025-08-29] MEDS: FOLIC ACID 1 MG TABLET PO (08:30)
[2025-08-29 12:00] VITALS: BP 116/68; PULSE 74; PULSE 85; RESP 17; TEMP 36.3; O2SAT 97
--- NOTE | 2025-08-29 12:52 | ESPR_ITS ---
<Statement entered by Jermain Lua MD - 09/08/25 08:32> I reviewed above note and agree with findings and plans. I have also personally examined the patient with medicine team and went over assessment and plan with medical team including electrical engineering intern and resident physician. <Statement entered by Tony Brenner MD - 08/29/25 15:44> Patient is seen at bedside, patient is status post colonoscopy and findings were consistent with hemorrhoids and diffuse erythema in the sigmoid and descending colon likely secondary to IBD. Patient's hemoglobin down trended therefore we will continue to monitor for today and anticipate discharge tomorrow if hemoglobin is stable. Patient will need to follow-up outpatient for biopsy results from the colonoscopy. For IBD will continue azathioprine, sulfasalazine and methylprednisolone. Patient was seen and examined by me personally. I have directly supervised and reviewed documentation by the team resident and agree with its findings. ------- Plan of care was discussed with the attending, Dr. Stoney Brenner, PGY-2 Documentation for date of: 08/29/25 Subjective Subjective Interval history: * Patient seen and examined at bedside. * Hemoglobin 8.4 down from 9.3. * WBC 16 from 13.6, consider methylprednisolone. * Started 40 twice daily Protonix. Exam Vital Signs Temp Pulse Resp BP Pulse Ox O2 Del Method O2 Flow Rate 97.7 F 71 16 118/71 96 Room Air 3 08/29/25 08:00 08/29/25 08:00 08/29/25 08:00 08/29/25 08:00 08/29/25 08:00 08/29/25 08:00 08/27/25 20:16 Narrative Exam General: Awake and in no acute distress. Conversational and non-toxic appearing. Neurologic: GCS 15. Alert and oriented x3, no gross neurological deficit, and patient able to move all 4 extremities. HEENT: Normocephalic, atraumatic, mucous membranes moist. Pupils reactive to light. Heart: Regular rate and rhythm, normal S1 and S2, no murmurs. Lungs: Clear to auscultation bilaterally with no wheezing or crackles. Abdomen: Firm, distended, nontender. No guarding or rebound tenderness. Extremities: No edema. 2+ radial and dorsalis pedis pulses bilaterally. Skin: Warm. Dry. No rash or ecchymoses. Objective Labs 08/29/25 05:29 08/29/25 05:29 Labs: Laboratory Results - last 24 hr 08/29/25 05:29 WBC 16.0 H RBC 3.02 L Hgb 8.4 L Hct 25.5 L MCV 84 MCH 27.8 MCHC 32.9 RDW Std Deviation 39.8 Plt Count 441 H Neut % (Auto) 88 H Lymph % (Auto) 8 L [place] % (Auto) 3 Eos % (Auto) 0 Baso % (Auto) 0 Neut # (Auto) 14.1 H Lymph # (Auto) 1.3 [place] # (Auto) 0.5 Eos # (Auto) 0.0 Baso # (Auto) 0.0 Immature Gran # (Auto) 0.06 H Absolute Nucleated RBC 0.00 Immature Gran % 0 Nucleated RBC % 0 Sodium 141 Potassium 3.9 Chloride 107 Carbon Dioxide 24.7 Anion Gap 9 BUN 9 Creatinine 0.9 Estim Creat Clear Calc 97.3 eGFR > 60 BUN/Creatinine Ratio 10 L Glucose 147 H Calculated Osmolality 282 Calcium 9.1 Phosphorus 4.6 Magnesium 2.4 Quality Measures Quality Measures none Assessment & Plan Assessment Current Active Medications: Generic Name Dose Route Start Last Admin Trade Name Freq PRN Reason Stop Dose Admin Acetaminophen 650 mg 08/26/25 07:41 Acetaminophen 325 Mg Tablet PO 09/25/25 07:40 Q6H PRN Fever >100.3, pain 1-3 Atorvastatin Calcium 20 mg 08/27/25 21:00 08/28/25 20:06 Atorvastatin Calcium 20 Mg Tablet PO 09/26/25 20:59 20 mg HS TAYLA Administration Azathioprine 50 mg 08/27/25 20:30 08/29/25 08:30 Azathioprine 50 Mg Tablet PO 09/26/25 20:29 50 mg QDAY TAYLA Administration Folic Acid 1 mg 08/27/25 20:30 08/29/25 08:30 Folic Acid 1 Mg Tablet PO 09/26/25 20:29 1 mg QDAY TAYLA Administration Methylprednisolone Sodium Succinate 40 mg 08/27/25 21:00 08/29/25 08:30 Methylprednisolone Sod Succ 40 Mg/Ml Vial IVP 09/03/25 20:59 40 mg Q12HR TAYLA Administration Ondansetron HCl 4 mg 08/26/25 07:41 Ondansetron Inj 2 Mg/Ml Inj 2 Ml IVP 09/25/25 07:40 Q6H PRN NAUSEA OR VOMITING Protocol Pantoprazole Sodium 40 mg 08/29/25 11:30 Pantoprazole 40 Mg Tablet PO 09/28/25 11:29 BID TAYLA Sennosides 1 tab 08/26/25 07:41 Senna/Docusate Sod 1 Tab Tablet PO 09/25/25 07:40 QDAY PRN CONSTIPATION Protocol Sulfasalazine 1,000 mg 08/27/25 21:00 08/29/25 08:30 Sulfasalazine 500 Mg Tablet PO 09/26/25 20:59 1,000 mg BID TAYLA Administration Plan Summary: Mr. Winters is a 50 y/o male with PMH HLD, prediabetes, and hemorrhoids s/p transanal hemorrhoidal dearterialization (2022) who preesnted to the ED on 08/26 with 4 days of large volume hematochezia. Admitted for lower GI bleed. #Lower GI bleed #Hemorrhoids s/p transanal hemorrhoidal dearterialization (2022) #Hx sigmoid diverticulosis #Acute onset inflammatory bowel disease #Ulcerative Colitis * Initial presentation: Hematochezia x4 days. No abdominal or rectal pain * 08/23 CT a/p w/o: sigmoid diverticulosis * Colonoscopy 08/27/2025 significant for perianal hemorrhoids, diffuse areas of erythematous mucosa in the sigmoid and descending colon, biopsies were taken. Plan: * Protonix 40 mg p.o. twice daily * Solu-Medrol 40 mg IV push every 12 hours * Azathioprine 50 mg p.o. daily * Sulfasalazine 1 g twice daily and increase to 4G * Folic acid 1 mg daily * Low fiber diet * GI on board #Normocytic anemia * i/s/o lower GI bleed * On admit: hgb 10.4, HCT 32, MCV87 --> hgb 9.1 * Hemoglobin has downtrended Plan: * CTM hgb * Transfuse pRBC if hgb <7 * Manage GI bleed as above #Leukocytosis * WBC elevated * Likely due to methylprednisolone Plan: * CTM with daily CBC #HLD * On statin at home, unknown which med or dose * Lipid panel WNL Plan: * Atorvastatin 20 mg PO daily (home med) #Predaibetes * A1C 5.8 Plan: * Can be managed with diet and exercise * f/u with PCP outpatient Checklist Dispo: Colonoscopy completed, biopsies taken, continue azathioprine, sulfasalazine, methylprednisolone. Started 40 mg p.o. twice daily Protonix. Lines: PIV Diet: Low fiber diet Bowel Reg: doc/senna PRN VTE ppx: SCD GI ppx: 40 mg p.o. twice daily Protonix. Pain mgmt: Tylenol PRN Code status: full Patient was seen and discussed with my attending physician Dr. Stoney GARCIA and my senior resident Dr. Jordin GARCIA PGY-2. Julian Mcleod DO PGY-1.
[2025-08-29] MEDS: PANTOPRAZOLE 40 MG TABLET PO ×2 (13:31→21:38)
--- NOTE | 2025-08-29 15:00 | PD.IMPROG ---
Documentation for date of: 08/29/25 Subjective Subjective Interval history: Drop in hemoglobin hematocrit from 9.3 and 28.4-8.4 and 25.5 WBC coming down to 13.3 Patient on IV Solu-Medrol Exam Vital Signs Temp Pulse Resp BP Pulse Ox O2 Del Method O2 Flow Rate 97.4 F 74 17 116/68 97 Room Air 3 08/29/25 12:00 08/29/25 12:00 08/29/25 12:00 08/29/25 12:00 08/29/25 12:00 08/29/25 12:00 08/27/25 20:16 Objective Labs 08/29/25 05:29 08/29/25 05:29 Labs: Laboratory Results - last 24 hr 08/29/25 05:29 WBC 16.0 H RBC 3.02 L Hgb 8.4 L Hct 25.5 L MCV 84 MCH 27.8 MCHC 32.9 RDW Std Deviation 39.8 Plt Count 441 H Neut % (Auto) 88 H Lymph % (Auto) 8 L [place] % (Auto) 3 Eos % (Auto) 0 Baso % (Auto) 0 Neut # (Auto) 14.1 H Lymph # (Auto) 1.3 [place] # (Auto) 0.5 Eos # (Auto) 0.0 Baso # (Auto) 0.0 Immature Gran # (Auto) 0.06 H Absolute Nucleated RBC 0.00 Immature Gran % 0 Nucleated RBC % 0 Sodium 141 Potassium 3.9 Chloride 107 Carbon Dioxide 24.7 Anion Gap 9 BUN 9 Creatinine 0.9 Estim Creat Clear Calc 97.3 eGFR > 60 BUN/Creatinine Ratio 10 L Glucose 147 H Calculated Osmolality 282 Calcium 9.1 Phosphorus 4.6 Magnesium 2.4 Impressions Impression: Acute exacerbation of the underlying inflammatory bowel disease with acute onset and a new diagnosis Monitor CBC Continue current management Assessment & Plan Time Spent With Patient Time: Total time spent is greater than 50% in coordination of care (as documented) at patient's floor/unit and/or counseling patient:
--- NOTE | 2025-08-29 15:04 | PC.SS ---
Rounding: Pending colonoscopy
[2025-08-29 16:00] VITALS: BP 123/67; PULSE 80; PULSE 82; RESP 17; TEMP 36.6; O2SAT 96
[2025-08-29 20:00] VITALS: BP 130/88; PULSE 73; PULSE 74; RESP 18; TEMP 36.6; O2SAT 95
[2025-08-29] MEDS: ATORVASTATIN CALCIUM 20 MG TABLET PO (21:38)
[2025-08-30] VITALS: BP 121/71; PULSE 67; PULSE 69; RESP 20; TEMP 36.3
[2025-08-30 04:00] VITALS: BP 128/81; PULSE 64; PULSE 73; RESP 16; TEMP 36.7; O2SAT 95
[2025-08-30 05:45] LABS: Basophils # (Auto) 0.0 Thou/mm3 (0.0-0.2); Basophils % (Auto) 0 % (0-2.5); Eosinophils # (Auto) 0.0 Thou/mm3 (0.0-0.5); Eosinophils % (Auto) 0 % (0-10); Hematocrit 26.8 % (41.0-53.0); Hemoglobin 8.8 g/dL (13.5-16.0); Immature Granulocytes Auto 0.06 Thou/mm3 (0.00-0.00); Lymphocytes # (Auto) 1.2 Thou/mm3 (1.0-4.8); Lymphocytes % (Auto) 9 % (10-50); Mean Corpuscular HGB Conc 32.8 g/dl (31.0-37.0); Mean Corpuscular Hemoglobin 28.4 pg (25.0-35.0); Mean Corpuscular Volume 87 fL (80-100); Monocytes # (Auto) 0.4 Thou/mm3 (0.0-0.8); Monocytes % (Auto) 3 % (0-12); Neutrophils # (Auto) 11.5 Thou/mm3 (1.8-7.7); Neutrophils % (Auto) 88 % (37-80); Nucleated Red Blood Cell # 0.00 Thou/mm3 (0.00-0.00); Nucleated Red Blood Cell % 0 /100 WBC (0); Platelet Count 461 Thou/mm3 (140-440); RDW Standard Deviation 40.4 fL (35.1-43.9); Red Blood Count 3.10 Miln/mm3 (4.50-5.90); White Blood Count 13.1 Thou/mm3 (3.8-10.6)
[2025-08-30 06:21] LABS: Anion Gap 11 (7-16); BUN/Creatinine Ratio 16 Ratio (12-20); Blood Urea Nitrogen 14 mg/dL (9-23); Calcium 8.9 mg/dL (8.3-10.6); Carbon Dioxide 26.3 mMol/L (20.0-31.0); Chloride 104 mMol/L (98-107); Creatinine (Component) 0.9 mg/dL (0.6-1.3); Estimated Creatinine Clearance 97.3 mL/min (>60); Glucose 138 mg/dL (74-106); Magnesium 2.2 mg/dL (1.6-2.6); Osmolality,Calculated 283 (275-295); Phosphorous 4.6 mg/dL (2.4-5.1); Potassium 4.2 mMol/L (3.4-5.1); Sodium 141 mMol/L (136-145); eGFR > 60 See Note
[2025-08-30 08:00] VITALS: BP 125/76; PULSE 68; PULSE 73; RESP 18; TEMP 36.5; O2SAT 99
[2025-08-30] MEDS: FOLIC ACID 1 MG TABLET PO (08:12)
[2025-08-30] MEDS: PANTOPRAZOLE 40 MG TABLET PO (08:12)
--- NOTE | 2025-08-30 11:30 | ESDS_ITS ---
<Statement entered by Jermain Lua MD - 09/08/25 08:33> I reviewed above note and agree with findings and plans. I have also personally examined the patient with medicine team and went over assessment and plan with medical team including administration intern and resident physician. Planned Discharge Date 08/30/25 DS: Providers Provider Date of admission: 08/26/25 07:41 Primary care physician: Tomasz Hodge Admitting Provider: Jermain Lua MD Attending Provider on Admission: Jermain Lua MD Consults: 08/26/25 13:19 Consult to Gastroenterology Routine Comment: Consulting Provider: Carmelo Thornton Attending Provider on DC: Jermain Lua MD Discharging Provider: Julian Mcleod DO DS: Diagnosis Discharge Diagnosis (1) Hemorrhoids, internal: Status: Acute (2) IBD (inflammatory bowel disease): Status: Acute Problem List Completed Was Problem List Reviewed/Reconciled?: Yes Hospital Course Hospital Course Hospital course: Hospital Course: Mr. Winters is a 50 y/o male with PMH HLD, prediabetes, and hemorrhoids s/p transanal hemorrhoidal dearterialization (2022) who preesnted to the ED on 08/26 with 4 days of large volume hematochezia. He reported that the bleeding started as dark stools and then progressed to bright red blood with clots that filled the toilet . He denied rectal pain, N/V, recent illness, abdominal pain, constipation, dysuria, urinary frequency urgency or hesitancy. It was noted that the bloody stool had a loose consistency. He denied dizziness, presyncope, syncope, falls. Patient reported that he had a colonoscopy 5 years ago, found diverticulosis vs diverticulitis per pt. When asked why he received colonoscopies at such a young age he reported that the indication was hemorrhoids. Patient was recently seen in the ED on 08/23/25 with similar presentation. Was given famotidine and chose to f/u outpatient with GI. Blood cultures taken at that time NGTD. CT a/p w/o on 08/23 showed sigmoid diverticlosis (present on 2022 CT as well). Patient underwent colonoscopy on 08/27/2025. Findings included hemorrhoids and diffuse areas of severely erythematous mucosa in the rectum, sigmoid, and descending colon. Biopsies were taken and the patient was started on Solu- Medrol, azathioprine, sulfasalazine, and folic acid with a low residue diet. The patient will be discharged and started taking azathioprine 50 mg daily. Follow-up with outpatient clinic where labs will be taken. If the white blood cell count is greater than 4000 and the platelet count is greater than 150,000, then increase the dose of azathioprine to 100 mg daily for weeks 5 through 8. Repeat labs on week 8 with the same parameters: if a white count of over 4000 and a platelet count of over 150,000. If labs are appropriate, then for weeks 9 through 12 increase the azathioprine dose to 150 mg daily. After 12 weeks, continue the 150 mg azathioprine dose and obtain lab monitoring with a CBC, serum aminotransferases, total bilirubin, and amylase every 3 months. The patient will also be discharged on a prednisone taper, folic acid, and sulfasalazine. Problem List: #Lower GI bleed #Hemorrhoids s/p transanal hemorrhoidal dearterialization (2022) #Hx sigmoid diverticulosis #Acute onset inflammatory bowel disease #Ulcerative Colitis #Normocytic anemia #Leukocytosis #HLD #Predaibetes Discharge Instructions: * Follow-up with PCP within 1-2 weeks of discharge, if you do not have a PCP, then you can follow-up at the [facility] . * Obtain a referral to a GI specialist at this PCP appointment. * Take prednisone 60 mg for 5 more days, followed by 50 mg for 7 days, 40 mg for 7 days, 30 mg for 7 days, 20 mg for 7 days, 10 mg for 5 days, and finally 5 mg for 5 days. * Prednisone may affect your blood sugar, check it daily, if your blood sugars are over 200, then please make an appointment with your PCP. * Take your azathioprine 50 mg for 27 more days, you may need an adjusted dose after the 27th day. Please obtain labs 1 week prior to the 27th day. * Take your folic acid 1 mg daily. * Take your sulfasalazine 1000 mg twice a day. * Return to the emergency room if symptoms worsen. * * * Tobias dyan fermin de seguimiento con elmore m?dico de cabecera dentro de 1 a 2 semanas despu?s del vidal. Si no tiene un m?dico de cabecera, puede hacer dyan fermin de seguimiento en el [facility]?see de [place] . * Obtenga dyan derivaci?n a un gastroenter?logo en esta fermin con elmore m?dico de cabecera. * [place] 60 mg de prednisona henrry 5 d?as m?s, seguido de 50 mg henrry 7 d?as, 40 mg henrry 7 d?as, 30 mg henrry 7 d?as, 20 mg henrry 7 d?as, 10 mg henrry 5 d?as y, finalmente, 5 mg henrry 5 d?as. * La prednisona puede afectar elmore nivel de az?car en jet; contr?mac diariamente. Si elmore nivel de az?car en jet es superior a 200, programe dyan fermin con elmore m?dico de cabecera. * [place] 50 mg de azatioprina henrry 27 d?as m?s; es posible que necesite un ajuste de dosis despu?s del d?a 27. Realice nain an?lisis de laboratorio dyan semana antes del d?a 27. * [place] 1 mg de ?cido f?nancy al d?a. * [place] 1000 mg de sulfasalazina dos veces al d?a. * Regrese a urgencias si los s?ntomas empeoran. The patient was seen and discussed with my attending physician Dr. Lua and my senior resident Dr. Jordin GARCIA PGY-2. Julian Mcleod DO PGY-1 Time Spent with Patient Time attestation: Total time spent providing and/or coordinating discharge services: More than 50% Time spent: Greater than 30 minutes Exam Vital Signs Temp Pulse Resp BP Pulse Ox O2 Del Method O2 Flow Rate 97.7 F 73 18 125/76 99 Room Air 3 08/30/25 08:00 08/30/25 08:00 08/30/25 08:00 08/30/25 08:00 08/30/25 08:00 08/30/25 08:00 08/29/25 16:00 Narrative Exam General: Awake and in no acute distress. Conversational and non-toxic appearing. Neurologic: GCS 15. Alert and oriented x3, no gross neurological deficit, and patient able to move all 4 extremities. HEENT: Normocephalic, atraumatic, mucous membranes moist. Pupils reactive to light. Heart: Regular rate and rhythm, normal S1 and S2, no murmurs. Lungs: Clear to auscultation bilaterally with no wheezing or crackles. Abdomen: Firm, distended, nontender. No guarding or rebound tenderness. Extremities: No edema. 2+ radial and dorsalis pedis pulses bilaterally. Skin: Warm. Dry. No rash or ecchymoses. Discharge Plan Plan Patient Disposition: HOME (Self Care) Patient condition on transfer: Stable Care Plan Goals: Instructions: * Follow-up with PCP within 1-2 weeks of discharge, if you do not have a PCP, then you can follow-up at the [facility] . * Obtain a referral to a GI specialist at this PCP appointment. * Take prednisone 60 mg for 5 more days, followed by 50 mg for 7 days, 40 mg for 7 days, 30 mg for 7 days, 20 mg for 7 days, 10 mg for 5 days, and finally 5 mg for 5 days. * Prednisone may affect your blood sugar, check it daily, if your blood sugars are over 200, then please make an appointment with your PCP. * Take your azathioprine 50 mg for 27 more days, you may need an adjusted dose after the 27th day. Please obtain labs 1 week prior to the 27th day. * Take your folic acid 1 mg daily. * Take your sulfasalazine 1000 mg twice a day. * Return to the emergency room if symptoms worsen. * * * Tobias dyan fermin de seguimiento con elmore m?dico de cabecera dentro de 1 a 2 semanas despu?s del vidal. Si no tiene un m?dico de cabecera, puede hacer dyan fermin de seguimiento en el [facility]?see de [place] . * Obtenga dyan derivaci?n a un gastroenter?logo en esta fermin con elmore m?dico de cabecera. * [place] 60 mg de prednisona henrry 5 d?as m?s, seguido de 50 mg henrry 7 d?as, 40 mg henrry 7 d?as, 30 mg henrry 7 d?as, 20 mg henrry 7 d?as, 10 mg henrry 5 d?as y, finalmente, 5 mg henrry 5 d?as. * La prednisona puede afectar elmore nivel de az?car en jet; contr?mac diariamente. Si elmore nivel de az?car en jet es superior a 200, programe dyan fermin con elmore m?dico de cabecera. * [place] 50 mg de azatioprina henrry 27 d?as m?s; es posible que necesite un ajuste de dosis despu?s del d?a 27. Realice nain an?lisis de laboratorio dyan semana antes del d?a 27. * [place] 1 mg de ?cido f?nancy al d?a. * [place] 1000 mg de sulfasalazina dos veces al d?a. * Regrese a urgencias si los s?ntomas empeoran. Prescriptions/Referrals Prescriptions/Med Rec: New azathioprine 50 mg Tablet 50 mg PO QDAY 27 Days Qty: 27 0RF folic acid 1 mg Tablet 1 mg PO QDAY 30 Days Qty: 30 0RF sulfasalazine 500 mg Tablet 1,000 mg PO BID 30 Days Qty: 120 0RF mesalamine 800 mg tablet,delayed release (DR/EC) 1,600 mg PO TID 42 Days Qty: 252 0RF Rx Instructions: must be taken on empty stomach; no food 1 hr after or 2-3 hrs before dose prednisone 5 mg tablet See Rx Instructions .ROUTE .COMPLEX Qty: 275 0RF Taper: Prednisone Taper 60 mg DAILY for 5 Days and 0 Hour 50 mg DAILY for 7 Days and 0 Hour 40 mg DAILY for 7 Days and 0 Hour 30 mg DAILY for 7 Days and 0 Hour 20 mg DAILY for 7 Days and 0 Hour 10 mg DAILY for 5 Days and 0 Hour 5 mg DAILY for 5 Days and 0 Hour Rx Instructions: mg orally ;5 mg orally ;Take 60mg for 5 days followed by 50mg for 7 days followed by 40mg for 7 days followed by 30 mg for 7 days followed by 20 mg for 7 days followed by 10 mg for 5 days followed by 5 mg for 5 days; Continued famotidine 20 mg tablet 20 mg PO QDAY Qty: 30 0RF Changed atorvastatin [Lipitor] 20 mg tablet 20 mg PO HS 30 Days Qty: 30 0RF Referrals: Tomasz Leong [Primary Care Provider] Patient/Caregiver Discharge Instructions Print Language: Burkinan Stand Alone Forms: Suri Award Info., Patient Portal Info Letter Discharge Order Discharge Orders: Discharge (Routine); Ordered 08/30/25 Ordered By: Julian Mcleod Quality Discharge Quality Measures none
[2025-08-30 12:00] VITALS: BP 131/85; PULSE 70; PULSE 74; RESP 18; TEMP 36.3; O2SAT 96
--- NOTE | 2025-08-30 14:46 | ESPR_ITS ---
Documentation for date of: 08/30/25 Subjective Subjective Interval history: Case discussed with internal medicine team Okay to discharge patient home on the following protocol Azathioprine 50 mg once a day eventually after a month increase to 50 mg twice daily or 100 mg once a day Sulfasalazine 1 g p.o. twice daily Folic acid 1 mg daily Prednisone 5 mg tablet 3 tablets twice daily and eventually drop 1 tablet once a week he will be off the prednisone in 5 to 6 weeks Patient to be followed at the [facility] clinic by Dr. Mcleod Exam Vital Signs Temp Pulse Resp BP Pulse Ox O2 Del Method O2 Flow Rate 97.4 F 74 18 131/85 H 96 Room Air 3 08/30/25 12:00 08/30/25 12:00 08/30/25 12:00 08/30/25 12:00 08/30/25 12:00 08/30/25 12:00 08/29/25 16:00 Objective Labs 08/30/25 04:27 08/30/25 04:27 Labs: Laboratory Results - last 24 hr 08/30/25 04:27 WBC 13.1 H RBC 3.10 L Hgb 8.8 L Hct 26.8 L MCV 87 MCH 28.4 MCHC 32.8 RDW Std Deviation 40.4 Plt Count 461 H Neut % (Auto) 88 H Lymph % (Auto) 9 L [place] % (Auto) 3 Eos % (Auto) 0 Baso % (Auto) 0 Neut # (Auto) 11.5 H Lymph # (Auto) 1.2 [place] # (Auto) 0.4 Eos # (Auto) 0.0 Baso # (Auto) 0.0 Immature Gran # (Auto) 0.06 H Absolute Nucleated RBC 0.00 Immature Gran % 1 H Nucleated RBC % 0 Sodium 141 Potassium 4.2 Chloride 104 Carbon Dioxide 26.3 Anion Gap 11 BUN 14 Creatinine 0.9 Estim Creat Clear Calc 97.3 eGFR > 60 BUN/Creatinine Ratio 16 Glucose 138 H Calculated Osmolality 283 Calcium 8.9 Phosphorus 4.6 Magnesium 2.2 Impressions Impression: Inflammatory bowel disease/ulcerative colitis Plan As per HPI Assessment & Plan Time Spent With Patient Time: Total time spent is greater than 50% in coordination of care (as documented) at patient's floor/unit and/or counseling patient:
== END 2025-08-30 14:45 | disposition home or self-care (01) | DRG 245 ==
LOC: SERX 05:57 → SERHOLD 07:54 → S3NX 09:48
PROVIDERS: Physician Assistant; Specialist; Admitting Provider Internal Medicine; Emergency Provider Emergency Medicine; PCP Physician Assistant; Visit Provider Internal Medicine
PROC: 0DJD8ZZ Inspection of Lower Intestinal Tract, Via Natural or Artificial Opening Endoscopic (ICD-10-PCS; CPT 45378; principal; 2025-08-27 18:30)
DX: K51.911 Ulcerative colitis, unspecified with rectal bleeding (principal); E78.5 Hyperlipidemia, unspecified; R73.03 Prediabetes; K57.30 Diverticulosis of large intestine without perforation or abscess without bleeding; D72.829 Elevated white blood cell count, unspecified; M17.12 Unilateral primary osteoarthritis, left knee; K64.8 Other hemorrhoids; Z79.624 Long term (current) use of inhibitors of nucleotide synthesis; D64.9 Anemia, unspecified; Z87.891 Personal history of nicotine dependence; Z79.899 Other long term (current) drug therapy
CPT/HCPCS: 36415; 80048; 80053; 80061; 80307; 80320; 83036; 83735; 84100; 85025; 86850; 86900; 86901; 93005; 93225; 96360; 99283; A4649; J1200; J2250; J2919; J3010; J7120; J7500; A9270; G0480